=== PATIENT | male | born 1955 | race Caucasian/White ===

== ENCOUNTER → 2016-09-19 | Outpatient (CLI) | payer OTHER | END | disposition home or self-care (01) | LOC: LAB.O 09:41 | PROVIDERS: ATTEND Family Medicine | DX: I10 Essential (primary) hypertension (principal) ==

== ENCOUNTER 2016-11-15 05:55 | Day surgery (SDC) | payer OTHER ==
[~2016-11-15 05:55] MED LIST: LACTATED RINGERS 1,000 ML ONE
[2016-11-15 07:23] VITALS: O2SAT 95
[2016-11-15 08:50] VITALS: BP 107/71; TEMP 98.2
--- NOTE | 2016-11-15 09:03 | OP ---
DATE OF PROCEDURE: 11/15/16 PREOPERATIVE DIAGNOSIS: 1. Average risk screening colonoscopy. POSTOPERATIVE DIAGNOSIS: 1. Diverticulosis. 2. Transverse colon polyp. 3. Internal hemorrhoids. PROCEDURE: 1. Colonoscopy with polypectomy. SURGEON: Ras Diaz MD. SEDATION: Monitored anesthesia care. ESTIMATED BLOOD LOSS: Less than 5 mL. PROCEDURE: Informed consent was obtained prior to sedation. The preprocedure cardiopulmonary assessment was satisfactory. The patient was brought to the Endoscopy Suite and placed in the left lateral decubitus position. She was then sedated by the anesthesia team. Digital rectal exam revealed perianal skin tags and internal hemorrhoids. The tip of the Olympus colonoscope was inserted into the rectum and advanced under direct visualization to the cecum as identified by the appendiceal orifice and ileocecal valve. Preparation of the colon was good. Upon reaching the cecum, the endoscope was slowly withdrawn from the patient with careful attention paid to the entire colonic mucosa for the identification of any small polyps or flat vascular lesions. There was evidence of diverticulosis throughout the entire colon. In the transverse colon, there was a small, 3 mm, flat polyp. This was resected and retrieved completely with cold forceps. The endoscopic was withdrawn into the rectum where a retroflexed view of the anal verge revealed internal hemorrhoids. The endoscope was then withdrawn from the patient and the procedure terminated. RECOMMENDATION: 1. Discharge the patient home with escort. 2. Followup pathology results. 3. Repeat colonoscopy in 5 to 10 years based on pathology results. Recommendation of 5 years will be given if polyp tissue reveals adenoma. 4. Return to my office as needed. #[id number] [facility]
[2016-11-15] MEDS ORDERED: LIDOCAINE 1% 10 ML VIAL INJ ONE (12:00)
[2016-11-15] MEDS ORDERED: PROPOFOL 200 MG/20 ML VIAL IV ONE (12:00)
== END 2016-11-15 09:57 | disposition home or self-care (01) ==
LOC: AMB 05:55
PROVIDERS: ATTEND Internal Medicine Gastroenterology
DX: Z12.11 Encounter for screening for malignant neoplasm of colon (principal); D12.3 Benign neoplasm of transverse colon; K57.30 Diverticulosis of large intestine without perforation or abscess without bleeding; K64.8 Other hemorrhoids; E11.9 Type 2 diabetes mellitus without complications; I10 Essential (primary) hypertension; E66.9 Obesity, unspecified; Z68.38 Body mass index [BMI] 38.0-38.9, adult; Z88.0 Allergy status to penicillin; Z87.891 Personal history of nicotine dependence; Z79.899 Other long term (current) drug therapy
CPT/HCPCS: 00810; 36416; 45380; 82948; J3490; J7120

== ENCOUNTER 2017-05-16 12:32 | Inpatient (IN) | payer OTHER ==
--- NOTE | 2017-05-16 12:41 | HP ---
SUPERVISING PHYSICIAN: Kosta Harvey MD HISTORY OF PRESENT ILLNESS: This is a 61-year-old male patient who started having some abdominal pain yesterday morning. He stayed at home from work and it worsened to the point that by the afternoon, he went to see Dr. Garcia in his office and Dr. Garcia sent him over the [facility] for admission. His CT scan per radiologic interpretation over at [facility] showed a distended gallbladder and possible gallbladder neck stone and recommended an ultrasound and also showed a 2 cm right adrenal adenoma and left colonic and sigmoid diverticulosis without evidence of acute diverticulitis and bilateral inguinal hernias, larger on the left than the right, both containing fat. Initially, his WBCs were 17,400, sodium 132, potassium 3.4 with blood sugar 156 , BUN 24, creatinine 0.92. His CK-MB was slightly elevated at 7.9 with a normal troponin of 0.05. His liver enzymes were within normal limits. His lipase was [address] Garcia called Dr. Delaney and Dr. Delaney agreed for the patient to be transferred here. This morning, I got a call from [facility] for him to be transferred to [facility] and Dr. Delaney to be consulted for possible cholecystectomy. His morning labs showed white count 14,700, hemoglobin 15.7, hematocrit 46. Sodium 134, potassium 3.8, chloride 98, CO2 was 28, BUN 12, creatinine 0.69, blood glucose 175, calcium 8.8. Liver enzymes were within normal limits. PAST MEDICAL HISTORY: 1. Snake bite to his left hand approximately 30 years ago. 2. Diabetes mellitus. 3. Hypertension. PAST SURGICAL HISTORY: 1. Tonsillectomy and adenoidectomy. 2. Surgical reimplantation of the fingers on his left hand. 3. Multiple eye surgeries as a very small child. CURRENT MEDICATIONS: 1. Metoprolol. 2. Metformin. 3. Hydrochlorothiazide. ALLERGIES: PENICILLIN AND GAMMA GLOBULIN. FAMILY HISTORY: Positive for diabetes, multiple malignancies and heart disease. SOCIAL HISTORY: He is . 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 He denies any ETOH, tobacco or illicit drug use, but he did quit smoking approximately 10 years ago. He has more than a 30 pack year history. REVIEW OF SYSTEMS: GENERAL: Denies fever, fatigue or weight loss. HEENT: Denies sinus symptoms, ear pain, vision changes or sore throat. RESPIRATORY: Denies coughing, wheezing or shortness of breath. CARDIAC: Denies chest pain, palpitations or tachycardia. GASTROINTESTINAL: Abdominal pain as per History of Present Illness. GENITOURINARY: Denies hematuria, dysuria or polyuria. NEUROLOGIC: Denies headache, dizziness or seizures. PHYSICAL EXAMINATION: VITAL SIGNS: Temperature 98, pulse rate 106, blood pressure 138/87, respiratory rate 17, O2 sat is 96% on room air. GENERAL: This is a 61 year-old male patient who is lying in his hospital bed. He is in no acute distress. HEENT: Normocephalic, atraumatic. Pupils are equal and reactive. Oropharynx is clear. Oral mucous membranes are moist. NECK: Supple without mass. RESPIRATORY: Clear to auscultation bilaterally. CHEST: There is equal rise and fall of the chest with inspiration and expiration. CARDIOVASCULAR: Regular rate and rhythm. ABDOMEN: Soft, nondistended. There is tenderness in the right lower quadrant with some guarding. There is no CVA tenderness. Bowel sounds are hypoactive. EXTREMITIES: No cyanosis, clubbing or edema. LABORATORY: Labs and films are as per the History of Present Illness plus his chest x-ray per radiology interpretation shows no evidence of acute cardiopulmonary or abdominal disease. Hemoglobin A1c is 6.7. We are awaiting the abdominal sonogram results. All other labs and films have been reviewed via the EMR. ASSESSMENT: 1. Possible cholelithiasis and early cholecystitis. 2. Diabetes. 3. Hypertension. PLAN: We will admit the patient to the hospital. I have consulted Dr. Delaney and he has seen the patient. I have ordered a gallbladder ultrasound as well as sliding scale insulin with AccuChecks every 6 hours. Will repeat his lab in the AM, including coags. I have ordered an EKG as well as Protonix for ulcer prophylaxis. He is NPO. I have also started him on some IV fluids and one dose of IV Levaquin. We will hold his home medications with the exception of his Metoprolol. After the results of the gallbladder sonogram, Dr. Delaney will discuss the possibility of surgery tomorrow. We will continue to monitor the patient closely and follow as needed. Dr. Harvey is the collaborating physician available for consultation. #[id number] [facility]
[2017-05-16] MEDS ORDERED: KCL 20MEQ/D5 1/2NS 1,000 ML IVS PRN (12:51)
[2017-05-16] MEDS ORDERED: SODIUM CHLORIDE 0.9% (FLUSH) 10 ML SYG IV PRN (13:39)
--- NOTE | 2017-05-16 13:39 | CONS ---
DATE OF CONSULTATION: 05/16/17 HISTORY OF PRESENT ILLNESS: The patient is a 61-year-old male who was admitted to observation yesterday at [facility] in [place] by Dr. Garcia after he woke up with nausea, vomiting and severe upper abdominal pain with radiation to the back. He denies previous episode of like illness. He denies real fatty food intolerance. He has no history of hepatitis; or jaundice. He still is tender with motion, but his nausea has resolved. He denies fever or chills. He denies previous episode of like illness. PAST MEDICAL HISTORY: 1. Snake bite to his left hand probably close to 30 years ago. 2. Diabetes mellitus. 3. Hypertension. PAST SURGICAL HISTORY: 1. Tonsillectomy and adenoidectomy. 2. Surgical reimplantation of the fingers on his left hand. CURRENT MEDICATIONS: 1. Metoprolol. 2. Metformin. ALLERGIES: PENICILLIN, GAMMAGLOBULIN. FAMILY HISTORY: Positive for diabetes, multiple malignancies, heart disease. 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 He currently does not smoke or drink, but has greater than a 30 pack year history of tobacco abuse. He stopped approximately 10 years ago. REVIEW OF SYSTEMS: There has been no weight loss, shortness of breath, chest pain, problems with cough, changes in bowel habits or black stools. PHYSICAL EXAMINATION: GENERAL: The patient is awake, alert, cooperative, in mild to moderate distress. VITAL SIGNS: The patient is currently afebrile. His last blood pressure was noted to be 180/105, but there has not been a blood pressure taken here. HEENT: Sclerae nonicteric. Mucous membranes moist. NECK: Without adenopathy. CHEST: Equal breath sounds bilaterally. HEART: Heart sounds are quite distant. ABDOMEN: Minimal bowel sounds. There is tenderness in the right lower quadrant with guarding. He is without CVA tenderness. GENITALIA: There is a reducible inguinal hernia on the left. Testes not examined. RECTAL: Deferred. EXTREMITIES: Without cyanosis, clubbing or edema. There is deformity of the left mid finger at the PIP joint. LABORATORY: From this morning at [place], laboratory revealed white blood cell count 14.7 which was down from 17 the day before. Hemoglobin 15, down from 16. Platelet count 272,000, 79% neutrophils. He had 85% neutrophils the day before. His liver functions are all within normal limits today. Potassium 3.8 , chloride 98, sodium 134, blood sugar 175, creatinine 0.69. CT scan from [place] was reviewed with Dr. Arias, our radiologist. There was a question of stone in the neck of the gallbladder. The gallbladder was distended, but there was no thickening of the parmar and no pericholecystic fluid. Otherwise, there is a large amount of stool. Both small umbical and inguinal hernia. ASSESSMENT: 1. Diabetes. 2. Hypertension. 3. Biliary colic. 4. Possible cholelithiasis and early cholecystitis. PLAN: Continue the Levaquin or Cipro. Obtain a sonogram. Keep him NPO. We will discuss surgical intervention of the gallbladder tomorrow after the results of the ultrasound are known. #[id number] [facility]
[2017-05-16] MEDS ORDERED: LEVALBUTEROL NEBS 1.25 MG/3 ML VIAL NEB PRN (13:41)
[2017-05-16] MEDS ORDERED: ONDANSETRON INJ 4 MG/2 ML VIAL IV PRN (13:41)
[2017-05-16] MEDS ORDERED: GLUCAGON INJ 1 MG VIAL SUBCU PRN (13:46)
[2017-05-16] MEDS ORDERED: DEXTROSE 50% 25 GM/50 ML SYG IV PRN (13:46)
[2017-05-16] MEDS ORDERED: IV SET AND CAP CHANGE INJ INJ SCH (14:00)
[2017-05-16] MEDS: PANTOPRAZOLE SODIUM IV 40 MG VIAL IV SCH (15:00)
[2017-05-16] MEDS ORDERED: levoFLOXacin 750MG IV 750 MG in PREMIX BAG 1 BAG IVPB ONE (16:00)
--- NOTE | 2017-05-16 16:04 | US ---
EXAM DESCRIPTION: Gall Bladder CLINICAL HISTORY: abd pain COMPARISON: None available. FINDINGS: This report is based on the receipt of 54 ultrasound images. Aorta: Not visualized IVC: Not visualized Ascites: None. Pancreas: Largely obscured by overlying bowel gas, but visualized portions are unremarkable. Liver: The liver appears diffusely hyperechoic suggesting the possibility of fatty filtration. No focal liver lesion or intrahepatic biliary duct dilation. Gallbladder/Common Duct: There is a 1.6 cm gallstone in the gallbladder neck with gallbladder wall thickening measuring 5 mm diameter. The common duct is not dilated, measuring 5 mm diameter. Right Kidney: No stones, hydronephrosis, atrophy or mass. IMPRESSION: Cholelithiasis with gallbladder wall thickening consistent with cholecystitis. No biliary duct dilation. Probable diffuse fatty infiltration of the liver. Electronically signed by: Live Rodriguez MD 05/16/2017 4:03 PM CDT Workstation: [id number]
[2017-05-16] MEDS ORDERED: KCL 20MEQ/D5NS 1,000 ML IVS ONE (16:09)
[2017-05-16] MEDS ORDERED: ENOXAPARIN SODIUM 40 MG/0.4 ML SYG SUBCU ONE (16:27)
[2017-05-16] MEDS: METOPROLOL TARTRATE 50 MG TAB PO SCH (17:02)
[2017-05-16] MEDS: KCL 20MEQ/D5NS 1,000 ML IVS PRN (17:31)
[2017-05-16] MEDS: INSULIN LISPRO 100 UNITS/ML PEN SUBCU SCH (17:52)
[2017-05-16] MEDS: HYDROmorphone HCL INJ 2 MG/ML VIAL IV PRN (21:05)
[2017-05-17] MEDS: INSULIN LISPRO 100 UNITS/ML PEN SUBCU SCH ×6 (01:31→21:38)
[2017-05-17] MEDS: KCL 20MEQ/D5NS 1,000 ML IVS PRN ×4 (01:32→15:16)
[2017-05-17] MEDS: PANTOPRAZOLE SODIUM IV 40 MG VIAL IV SCH (06:01)
[2017-05-17] MEDS ORDERED: PROPOFOL 200 MG/20 ML VIAL IV ONE (07:00)
[2017-05-17] MEDS ORDERED: ATROPINE SULFATE 0.4 MG/ML 1ML VIAL ONE (07:00)
[2017-05-17] MEDS ORDERED: NEOSTIGMINE METHYLSULFATE 1 MG/ML ML IV ONE (07:00)
[2017-05-17] MEDS: METOPROLOL TARTRATE 50 MG TAB PO SCH ×2 (07:33→16:52)
[2017-05-17] MEDS ORDERED: HEPARIN SODIUM (PORCINE) 10,000 UNITS/ML VIAL ONE (10:43)
[2017-05-17] MEDS ORDERED: BUPIVACAINE 0.25% W/EPI 50 ML VIAL INJ ONE (10:43)
[2017-05-17] MEDS ORDERED: fentaNYL CITRATE INJ 50 MCG/ML AMP ONE (11:15)
[2017-05-17] MEDS ORDERED: ROCURONIUM BROMIDE 10 MG/ML VIAL ONE ×2 (11:15→13:05)
[2017-05-17] MEDS ORDERED: HYDROcodone 5MG/APAP 325MG 1 EA TAB PO PRN (13:48)
[2017-05-17] MEDS ORDERED: ONDANSETRON INJ 4 MG/2 ML VIAL IV PRN (13:48)
[2017-05-17] MEDS: MORPHINE SULFATE INJ 10 MG/ML VIAL ONE ×2 (14:10→14:20)
[2017-05-17] MEDS ORDERED: METOCLOPRAMIDE HCL INJ 10 MG/2 ML VIAL ONE (14:27)
--- NOTE | 2017-05-17 14:39 | OP ---
DATE OF PROCEDURE: 05/17/17 PREOPERATIVE DIAGNOSIS: 1. Cholelithiasis. 2. Possible acute cholecystitis. 3. Diabetes mellitus. 4. Possible fatty infiltration of the liver. POSTOPERATIVE DIAGNOSIS: 1. Cholelithiasis. 2. Acute cholecystitis. 3. Diabetes mellitus. PROCEDURE: 1. Laparoscopic cholecystectomy with intraoperative cholangiography. SURGEON: Wilbert Delaney MD. TRASHMAN: None. ANESTHESIA: Local infiltration of 0.25% Marcaine with epinephrine and general endotracheal anesthesia. INDICATION: The patient is a 61-year-old male who developed severe abdominal pain the day before yesterday. He was admitted [facility] in [place] where a CT scan showed a normal gallbladder wall thickening, but appeared to have a stone in the neck of the gallbladder. He was transferred here and ultrasound revealed thickening of the gallbladder wall, possible fatty infiltration of the liver and a gallstone. The patient was brought to the Surgical Suite today for laparoscopic cholecystectomy with cholangiograms and possible wedge biopsy of the liver. FINDINGS: The patient's liver had minuscule, if any, fatty infiltration of the liver, so no biopsy was performed. Intraoperative cholangiography revealed a very long cystic duct that entered into the distal common bile duct. The upper trifurcation was identified without problem. There were no obvious filling defects or stricture. There was free flow into the duodenum. No other pathology was identified other than the gallbladder wall was thickened and edematous. DESCRIPTION OF PROCEDURE: After adequate general endotracheal anesthesia was obtained, the patient was prepped and draped in the usual sterile manner. Surgical time-out was taken. Infiltration of the area approximately 2 to 3 cm above the umbilicus was infiltrated with local anesthesia. A vertical incision was made. Dissection was carried down through the skin and subcutaneous tissue to the midline fascia using blunt dissection. Traction sutures were placed on either side of the midline. A small incision was made in the midline fascia and the peritoneum was opened bluntly. Shahana trocar was introduced under direct vision and fixed in place with the 20 mL balloon. CO2 was then insufflated until a pressure of 12 mmHg was reached and the abdomen was tympanitic in all four quadrants. At this point, it was noted that the camera, the laparoscope itself seemed to have a crack, so we had to change out and go to a different system. When this was done and white balanced, it was introduced into the abdominal cavity and the previously noted findings were identified. The patient was then placed in deep Trendelenburg position, turned to the left side. The upper abdominal ports were placed under direct vision. We were unable to grab the gallbladder due to its being tense with thickened parmar, so a Storz needle was introduced and 60 mL of dark green bile was aspirated. The gallbladder was then grasped, retracted anteriorly and laterally. The neck of the gallbladder was retracted laterally. The triangle of Calot was then explored with the cystic duct and cystic artery identified and isolated. The cystic duct was hemoclipped once proximally. A small incision was made in the cystic duct. The cholangiogram catheter was introduced under direct vision into the cystic duct and clipped in place. Cholangiograms were then taken using fluoroscopy which revealed free flow into the duodenum with no filling defects and a long cystic duct and the normal trifurcation and biliary tree. At this point, the cystic duct distal to the catheter was dissected free, clipped three times, then the cystic duct catheter was removed. No bile leak was identified. The cystic artery was clipped twice and then divided using electrocautery. A second branch was identified by cautery and this was also clipped twice. The gallbladder was then dissected free from the gallbladder bed of the liver with some difficulty due to the edema and there was a significant amount of oozing from the gallbladder bed of the liver which was controlled generally with cautery turned up to 50 after the gallbladder was out. The gallbladder was removed using an EndoCatch bag in the usual manner through the supraumbilical port site. When this was done, the subhepatic space and subphrenic space were irrigated copiously with saline. The liver was inspected and decision was made not to proceed with liver biopsy. At this point, due to the small amount of oozing in the gallbladder bed of the liver, a 15 Macedonian round PARK drain was introduced through the lateral port site and introduced to the subhepatic space and sutured in place with 3-0 Nylon skin suture. The remaining ports were removed under direct vision. Hemostasis was noted to be adequate. The supraumbilical port site fascia was approximated with two [id number] sutures of 0 Vicryl in a vertical manner. When these were done, the subcutaneous tissue was irrigated with saline. Skin edges were approximated with 4-0 Vicryl subcuticular sutures, benzoin and Steri-Strips. The PARK drain was placed to closed suction grenade drainage. At this point, Steri-Strips were applied. Sterile dressings were applied. The patient was awakened and taken to the Recovery Room in stable condition. Estimated blood loss was 100 to 150 mL. All sponge, needle and instrument counts were correct. #[id number] [facility]
[2017-05-17] MEDS ORDERED: levoFLOXacin 750MG IV 750 MG in PREMIX BAG 1 BAG IVPB SCH (16:00)
[2017-05-17] MEDS: HYDROmorphone HCL INJ 2 MG/ML VIAL IV PRN ×2 (16:55→19:36)
[2017-05-17] MEDS: DEX 5% W/NACL 0.45% 1000ML 1,000 ML IVS PRN (19:20)
[2017-05-18] MEDS: DEX 5% W/NACL 0.45% 1000ML 1,000 ML IVS PRN (03:12)
[2017-05-18 06:05] VITALS: BP 120/75; TEMP 98.5
[2017-05-18] MEDS: PANTOPRAZOLE SODIUM IV 40 MG VIAL IV SCH (06:05)
[2017-05-18] MEDS: INSULIN LISPRO 100 UNITS/ML PEN SUBCU SCH ×2 (07:30→13:50)
[2017-05-18] MEDS: METOPROLOL TARTRATE 50 MG TAB PO SCH (08:22)
--- NOTE | 2017-05-18 13:20 | PN ---
SUPERVISING PHYSICIAN: Kosta Harvey MD DATE: 05/17/17 SUBJECTIVE: The patient was seen in postoperative state from recovery. He was in stable condition. He had fairly good control of his pain. He was having no nausea. He is afebrile. OBJECTIVE: VITAL SIGNS: Temperature 98. Pulse 97. Blood pressure 130/76. Respirations 18. Saturation 97% on nasal cannula at 2 liters. I&Os showed positive balance of 279 with 1579 in, 1300 out. Weight 116 kg. CHEST: Lungs clear to auscultation. HEART: Regular rate and rhythm. ABDOMEN: Obese, but soft with tenderness overlying the surgical site. PARK drain in place in the right upper quadrant with serosanguineous fluid. EXTREMITIES: No cyanosis, clubbing or edema. NEUROLOGIC: Alert and oriented times three. LABORATORY: Preoperative laboratory studies showed normal CBC with white count 9.0. Differential within normal limits. Coagulation studies showed just a slightly elevated PT of 12.6 with PT-T 32.3. Chemistries preoperatively showed normal electrolytes with potassium 3.6, BUN 12, creatinine 0.79. Blood sugars well controlled between 118 and 197. Hemoglobin initially was 6.7, calcium 8.5. RADIOLOGY: Gallbladder ultrasound on 05/16/17 per radiologic interpretation showed cholelithiasis with gallbladder wall thickening consistent with cholecystitis, but no biliary duct dilation. There was probable diffuse fatty infiltration of the liver. ASSESSMENT: 1. Acute cholecystitis. 2. Diabetes, type 2. 3. Questionable fatty infiltration of the liver. 4. Hypertension. PLAN: The patient will be followed postoperatively along with Dr. Delaney with anticipation of hopefully discharging tomorrow. Diet will be advanced tonight as tolerated. He will be encouraged to walk. Pain control is per Dr. Delaney's orders. We will anticipate discharge tomorrow. Until then, we will continue to monitor the patient closely and treat appropriately. [facility][id number] [facility]
[2017-05-18 14:07] VITALS: O2SAT 97
--- NOTE | 2017-05-19 12:39 | DS ---
SUPERVISING PHYSICIAN: Kosta Harvey M.D. DISCHARGE DIAGNOSIS: 1. Acute cholecystitis secondary to cholelithiasis. 2. Diabetes mellitus, type 2. 3. Hypertension. HISTORY OF PRESENT ILLNESS: Mr. Sheriff is a 61-year-old male patient who started having some abdominal pains the day before admission early in the morning. He stayed at home from work and the pain worsened to the point that by the afternoon, he went to see Dr. Garcia in his office and Dr. Garcia sent him over to the [facility] for admission. His CT scan per radiologic interpretation over at [facility] showed a distended gallbladder and possible gallbladder neck stone and recommended an ultrasound and also showed a 2 cm right adrenal adenoma and left colonic and sigmoid diverticulosis without evidence of acute diverticulitis and bilateral inguinal hernias, larger on the left than the right, both containing fat. Initially, his white count was 17,400 , sodium 132, potassium 3.4 with blood sugar 156, BUN 24, creatinine 0.92. Liver enzymes were within normal limits. His lipase was [address] 103. Dr. Garcia called Dr. Delaney and Dr. Delaney agreed at that point that the patient is to be transferred to [facility]. On the morning of admission, [facility] requested the patient be transferred to [facility] and Dr. Delaney be consulted for possible cholecystectomy. His morning labs showed white count 14,700. Liver enzymes were still within normal limits. He was transferred and admitted in stable condition with surgical consultation with Dr. Delaney. LABORATORY: White count on admission was 9.0, at discharge was 10.4. Hemoglobin at discharge was 14.0, hematocrit 42.5, platelet count 261,000. Differential showed to be initially within normal limits. Coagulation studies showed just a slight elevation of PT at 12.6 with PTT of 32.3. Chemistries at discharge showed normal electrolytes with potassium 3.9, BUN 10, creatinine 0.87. Blood sugars were well controlled between 122 and 197. Liver functions showed a slight elevation of AST at 70, ALT at 101. Postoperatively calcium 8.4. RADIOLOGY: He had a CT of the abdomen performed at [facility]. Please refer to that report for full details. On admission to the Medical/Surgical floor prior to surgery he had a gallbladder ultrasound completed and per radiology interpretation there was note of cholelithiasis with gallbladder wall thickening consistent with cholecystitis but no biliary duct dilation. There was note of probable diffuse fatty infiltration of the liver. PROCEDURES: Laparoscopic cholecystectomy with intraoperative cholangiography for cholelithiasis and acute cholecystitis performed by Dr. Delaney. Please refer to his report for full details. HOSPITAL COURSE: Mr. Sheriff was admitted on 05/16/17 for acute cholecystitis. After workup and consultation with Dr. Delaney, the patient had a laparoscopic cholecystectomy performed on the morning of 05/17/17. He was seen in the immediate postoperative state. He was stable and discharged from recovery. He tolerated the surgery without any complications. He did have a J-P drain in place at time of admission back to the floor. On the morning of discharge, the patient was actually ambulating well, tolerating his diet and passing gas, having no further complaints. He had good blood pressure control. Blood sugars were well controlled and Dr. Delaney requested the patient be discharged to have close clinical followup in the next week. PLAN: Mr. Sheriff was discharged on 05/18/17 with instructions to followup with Dr. Delaney as scheduled. He was to resume his home medications as instructed and take new prescriptions as directed. He was started on antibiotics to include Levaquin for 4 days and to take every day at 1700. He was encouraged to increase fluids and was told to return to the hospital should he have any concerning symptoms. New prescriptions at discharge included: 1. [place] 5/325 one to two tablets every 4 hours as needed, #[address] Delaney. 2. Levaquin 500 mg daily at 1700, #4. Diet at discharge was low fat, low cholesterol diet with diet suggestions provided. Activity is walking as tolerated. No lifting. No exercising. May shower but no tub bath. Condition at discharge was stable and improved. [facility][id number] [facility]
== END 2017-05-18 13:40 | disposition home or self-care (01) | DRG 419 ==
LOC: MS 12:32
PROVIDERS: ADMIT Nurse Practitioner Acute Care; ATTEND Nurse Practitioner Family
PROC: 0FT44ZZ Resection of Gallbladder, Percutaneous Endoscopic Approach (ICD-10-PCS; principal; 2017-05-16)
DX: K80.00 Calculus of gallbladder with acute cholecystitis without obstruction (principal); K76.0 Fatty (change of) liver, not elsewhere classified; E11.9 Type 2 diabetes mellitus without complications; D35.01 Benign neoplasm of right adrenal gland; I10 Essential (primary) hypertension; K40.20 Bilateral inguinal hernia, without obstruction or gangrene, not specified as recurrent; Z87.891 Personal history of nicotine dependence; Z79.84 Long term (current) use of oral hypoglycemic drugs; Z79.899 Other long term (current) drug therapy; Z88.0 Allergy status to penicillin; Z91.048 Other nonmedicinal substance allergy status

== ENCOUNTER → 2017-09-28 | Outpatient (CLI) | payer OTHER | LOC: LAB.O 09:44 | PROVIDERS: ATTEND Family Medicine | DX: E11.9 Type 2 diabetes mellitus without complications (principal) ==

== ENCOUNTER 2017-10-01 12:59 | Inpatient (IN) | payer OTHER ==
--- NOTE | 2017-10-01 13:02 | HP ---
HISTORY OF PRESENT ILLNESS: This 61-year-old, white male was admitted to the hospital as a direct admit from Dr. Garcia' office from [place], [place]. He apparently has been getting sicker for the last 2 weeks. He has had decreased appetite. He has not been eating or drinking well at all and feels he is somewhat dehydrated. 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 He has especially noted some darkness in his urine with associated burning upon urination, hesitancy, some slight blockage, increased nocturia and urgency. He has had some lower abdominal discomfort associated with this. For the last 5 days, he has had worsening abdominal pain with associated chills and low grade fever of approximately 100 degrees. Last Sunday , which was 3 days ago, he was at work and became quite sweaty and lightheaded and was asking his colleagues to call his when he suddenly found himself sitting up on a chair having been helped there by his colleagues having lost consciousness temporarily. He had not fallen or injured his head. In Dr. Garcia' office today, the report states he had a white count of over 21,000 with associated anemia, blood pressure 127/83. He has had increasing weight loss, losing approximately 27 pounds in the last 6 months. He had his gallbladder removed by Dr. Delaney in May of 2017. At that time, he had a CT scan performed which did reveal adenoma of the right adrenal gland as well as the presence of diverticulosis without diverticulitis noted at that time. The patient is admitted to the hospital because of significant abnormalities on lab , his worsening condition, the presence of extreme darkness to his urine with associated abdominal pain and dysuria suggesting an underlying urinary tract infection with possible sepsis. Significant clinical dehydration also present with lab pending. PAST MEDICAL HISTORY: 1. Snake bite to the left hand about 30 years ago. 2. Diabetes mellitus on metformin twice daily. 3. Hypertension. PAST SURGICAL HISTORY: 1. Tonsillectomy as a child. 2. Surgical reimplantation of four fingers, left hand. 3. Snake bite to left hand. 4. 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 CURRENT MEDICATIONS: Please refer to nursing notes for a list of up-to-date, verified home medications. ALLERGIES: PENICILLIN, GAMMAGLOBULIN. FAMILY HISTORY: Positive for diabetes, cancer, heart disease. 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 REVIEW OF SYSTEMS: GENERAL: Significant weight loss is noted of about 27 pounds in the last 6 months, especially noted to increase the weight loss after the gallbladder surgery in May of last year. Some low grade fever and chills also present. HEENT: No specific complaints and problems of vision and hearing at this time. LUNGS: No significant shortness of breath or cough or hemoptysis. CARDIOVASCULAR: No chest pains or heavy crushing discomforts or rhythm changes. GASTROINTESTINAL: Decreased appetite. No blood in the stools. No nausea, vomiting or diarrhea. GENITOURINARY: Increased frequency with burning upon urination, urgency and hesitancy. History of enlarged prostate. EXTREMITIES: Unremarkable. NEUROLOGIC: No focal neurological deficits. The patient is quite weak. History of a syncopal episode with short period of loss of consciousness about 3 days ago while at work. PHYSICAL EXAMINATION: VITAL SIGNS: Afebrile. Pulse 106. Blood pressure 149/93. Pulse oximetry 95% on room air. Respirations 16. Weight 106.7 kg on bed scale. GENERAL: The patient is awake and alert. HEENT: Dryness of the buccal mucosa is readily evident. Encouraged to drink more fluids. NECK: Supple with no adenopathy or carotid bruits. LUNGS: Generally clear to auscultation with fairly good respiratory excursions. CARDIOVASCULAR: Heart tones are fairly regular without any significant gallops. No chest wall tenderness. ABDOMEN: Slightly diminished bowel tones. No organomegaly, masses or significant tenderness except some mild tenderness in the lower suprapubic region. EXTREMITIES: Fairly well-formed with no significant loss of muscle tone. NEUROLOGIC: No focal neurological deficits are noted. The patient is otherwise awake, alert, oriented and communicative. LABORATORY: Pending. Recent lab studies reported from Dr. Garcia' office is extremely dark urine looking almost like syrup according to the doctor. White count over 21,000. The was present to assist in transporting here, especially with his recent history of syncopal episode. Other lab studies are pending with blood cultures to be obtained as well. ASSESSMENT: 1. Evidence of probable urinary tract infection, rule out early sepsis, requiring fluids and antibiotic. 2. Recent history of syncope, probably postural drainage, await tilt vital signs, repeated on a daily basis after fluid challenge to see if it will improve. 3. Leukocytosis with white count over 21,000. 4. History of recent weight loss with the patient not eating much, contributing to the weight loss. 5. History of benign prostatic hypertrophy with history of nocturia, worsening with recent symptoms. 6. Possible underlying prostatitis. 7. Bilateral inguinal hernias, being followed by Dr. Delaney in the clinic. 8. Diabetes mellitus, type 2, on oral therapy. 9. Moderate dehydration, requiring fluid supplementation to assist with recovery. PLAN: The patient is given a bolus of fluids and then started on normal saline with potassium supplementation. Encouraged to drink adequate fluids. After urine and blood cultures are obtained, we will start meropenem 1 gram q.8h. Check tilt vitals. Close followup and review with Dr. Garcia when completed. Special attention to avoid falls. [facility][id number] [facility]
[2017-10-01] MEDS ORDERED: SODIUM CHLORIDE 0.9% (FLUSH) 10 ML SYG IV PRN (13:27)
[2017-10-01] MEDS ORDERED: ACETAMINOPHEN 325 MG TAB PO PRN (13:30)
[2017-10-01] MEDS ORDERED: IV SET AND CAP CHANGE INJ INJ SCH (13:30)
[2017-10-01] MEDS ORDERED: MAGNESIUM HYDROXIDE 30 ML UD PO PRN (13:30)
[2017-10-01] MEDS ORDERED: SODIUM CHLORIDE 0.9% 1000ML 1,000 ML IVS PRN (13:30)
[2017-10-01] MEDS ORDERED: SODIUM CHLORIDE 0.9% 500ML 500 ML IVS ONE (13:34)
[2017-10-01] MEDS: LEVALBUTEROL NEBS 0.63 MG/3 ML VIAL INH SCH ×2 (14:07→20:27)
[2017-10-01] MEDS: MULTIPLE VITAMIN 1 EA TAB PO SCH (14:18)
[2017-10-01] MEDS: KCL 20 MEQ/NS 1,000 ML IVS PRN (14:33)
[2017-10-01] MEDS ORDERED: MEROPENEM 1 GM VIAL IVPB ONE ×3 (14:46→19:32)
[2017-10-01] MEDS ORDERED: SODIUM CHL 0.9% 50ML MIN-BAG+ 50 ML IVPB ONE ×3 (14:46→19:31)
[2017-10-01] MEDS: MEROPENEM 1 GM in SODIUM CHL 0.9% 50ML MIN-BAG+ 50 ML IVPB SCH ×2 (14:47→21:35)
--- NOTE | 2017-10-01 15:47 | RAD ---
EXAM DESCRIPTION: Chest,2 Views CLINICAL HISTORY: fever, urosepsis COMPARISON: None FINDINGS: Two-view chest x-ray shows cardiomediastinal silhouette and pulmonary vasculature to be within normal limits. Tortuosity the thoracic aorta is seen. The lungs are normally aerated and clear. Costophrenic angles are sharp. Moderate disc degenerative changes of the spine are seen. IMPRESSION: No radiographic evidence of acute cardiopulmonary disease. Electronically signed by: Edvin Espinal MD 10/01/2017 3:46 PM [facility]
[2017-10-01] MEDS: metFORMIN HCL 500 MG TAB PO SCH (17:11)
[2017-10-01] MEDS: METOPROLOL TARTRATE 50 MG TAB PO SCH (17:12)
[2017-10-01] MEDS ORDERED: OMEPRAZOLE CAP 20 MG CAP ONE (19:32)
[2017-10-02] MEDS: KCL 20 MEQ/NS 1,000 ML IVS PRN ×2 (01:51→12:14)
[2017-10-02] MEDS: OMEPRAZOLE CAP 20 MG CAP PO SCH (06:04)
[2017-10-02] MEDS: MEROPENEM 1 GM in SODIUM CHL 0.9% 50ML MIN-BAG+ 50 ML IVPB SCH ×3 (06:04→22:08)
[2017-10-02] MEDS: HYDROcodone 5MG/APAP 325MG 1 EA TAB PO PRN ×2 (07:42→16:48)
[2017-10-02] MEDS: METOPROLOL TARTRATE 50 MG TAB PO SCH ×2 (07:43→16:43)
[2017-10-02] MEDS: metFORMIN HCL 500 MG TAB PO SCH ×2 (07:43→16:43)
[2017-10-02] MEDS: MULTIPLE VITAMIN 1 EA TAB PO SCH (08:30)
[2017-10-02] MEDS: LEVALBUTEROL NEBS 0.63 MG/3 ML VIAL INH SCH ×3 (08:50→20:34)
[2017-10-02] MEDS ORDERED: POTASSIUM CHLORIDE 20 MEQ TAB PO ONE (09:38)
[2017-10-02] MEDS ORDERED: MEROPENEM 1 GM VIAL IVPB ONE ×2 (12:37→19:52)
[2017-10-02] MEDS ORDERED: SODIUM CHL 0.9% 50ML MIN-BAG+ 50 ML IVPB ONE ×2 (12:37→19:52)
--- NOTE | 2017-10-02 15:58 | PN ---
DATE: 10/02/17 SUPERVISING PHYSICIAN: Germain Denney MD SUBJECTIVE: The patient is lying in bed, has complaints of some right flank pain but otherwise has no complaints of shortness of breath, chest pain, nausea , vomiting, diarrhea. OBJECTIVE: VITAL SIGNS: Temperature 98.1, pulse rate 93, blood pressure 133/ 77, respiratory rate 17, 02 saturation 96% on room air. CHEST: Essentially clear to auscultation bilaterally. CARDIAC: Regular rate and rhythm. GI: Abdomen soft, nondistended. He is slightly tender to the right upper quadrant and right flank area. There is no rebound tenderness. EXTREMITIES: No cyanosis, clubbing, or edema. NEURO: He is alert and oriented x 3. LABORATORY: WBCs have slightly improved to 16,700 with hemoglobin of 11.6 and hematocrit 34.4. Platelet count 511,000. Yftsal856, potassium 3.4, chloride 100 , carbon dioxide 28. BUN 9, creatinine 0.55. Glucose 126. Total PSA is 4.23. His preliminary blood cultures show no growth after 24 hours and his preliminary urine culture shows no growth after 24 hours. All other labs and films have been reviewed via the EMR. ASSESSMENT: 1. Urinary tract infection versus prostatitis, rule out early sepsis. He is presently on antibiotics and has had fluids. His blood cultures and urine cultures are . negative thus far with an elevated PSA. 2. Recent history of syncope, may be due to dehydration and sepsis. 3. Leukocytosis that is improving. 4. History of recent weight loss with the patient not eating much, contributing to his weight loss. 5. History of benign prostatic hypertrophy with history of nocturia with symptoms that have worsened recently. 6. Bilateral inguinal hernias, being followed by Dr. Delaney in the clinic. 7. Diabetes mellitus, type 2. 8. Dehydration most likely due to early sepsis as well as #1. . PLAN: We will continue present supportive care. I have discontinued his IV fluids for now due to his good intake of oral fluids. He has been walking in the hallways and feels much better, although he is still quite weak. Will consider completing a regimen of antibiotics to cover for prostatitis until he can see his primary care physician, Dr. Rebolledo, as well as being referred to a urologist. Will order labs for in the morning and we will continue to monitor the patient closely and follow as needed. Dr. Denney is the collaborating physician available for consultation. #[id number] [facility]
[2017-10-02] MEDS: SODIUM CHLORIDE 0.9% (FLUSH) 10 ML SYG IV SCH (21:15)
[2017-10-03] MEDS ORDERED: SODIUM CHL 0.9% 50ML MIN-BAG+ 50 ML IVPB ONE ×2 (05:23→12:07)
[2017-10-03] MEDS ORDERED: MEROPENEM 1 GM VIAL IVPB ONE ×2 (05:23→12:07)
[2017-10-03] MEDS: MEROPENEM 1 GM in SODIUM CHL 0.9% 50ML MIN-BAG+ 50 ML IVPB SCH ×2 (06:09→13:35)
[2017-10-03] MEDS: OMEPRAZOLE CAP 20 MG CAP PO SCH (06:10)
[2017-10-03 06:20] VITALS: TEMP 98.3
[2017-10-03] MEDS: METOPROLOL TARTRATE 50 MG TAB PO SCH (07:35)
[2017-10-03] MEDS: SODIUM CHLORIDE 0.9% (FLUSH) 10 ML SYG IV SCH (07:35)
[2017-10-03] MEDS: metFORMIN HCL 500 MG TAB PO SCH (07:36)
[2017-10-03] MEDS: MULTIPLE VITAMIN 1 EA TAB PO SCH (08:02)
[2017-10-03] MEDS: LEVALBUTEROL NEBS 0.63 MG/3 ML VIAL INH SCH ×2 (08:16→14:00)
[2017-10-03 10:13] VITALS: BP 136/88; O2SAT 97
--- NOTE | 2017-10-03 13:54 | DS ---
SUPERVISING PHYSICIAN: Germain Denney MD DISCHARGE DIAGNOSIS: 1. Acute prostatitis, although it may be chronic. Received Merrem IV antibiotics as inpatient. PSA is 4.23. 2. Urinary tract infection versus prostatitis. Early sepsis was ruled out. He received IV antibiotics and IV fluid resuscitation. His blood cultures and urine cultures are negative thus far with an elevated PSA. 3. Leukocytosis, continues although has improved from admission. 4. History of recent weight loss, most likely due to not eating due to his illness. 5. History of benign prostatic hypertrophy with history of nocturia with symptoms that have worsened recently. 6. Bilateral inguinal hernias, being followed by Dr. Delaney in the clinic. 7. Diabetes mellitus, type 2. 8. Dehydration, most likely due to early sepsis as well as #1. HISTORY OF PRESENT ILLNESS: This is a 61-year-old male patient who is seen by Dr. Garcia. He was directly admitted to our hospital from Dr. Garcia' office in [place], [place]. He had been getting sicker for the previous 2 weeks with very poor appetite. He had not been eating or drinking well and was dehydrated. 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 His urine was reported to be dark with associated burning upon urination. There was some hesitancy, some slight blockage, increased nocturia and urgency. He also complained of lower abdominal discomfort. For 5 days prior to his admission, he had worsening abdominal pain with associated chills and low grade fever of approximately 100 degrees. At one point, he had diaphoresis and was lightheaded and had a syncopal episode. There was no associated fall. On the day of admission, Dr. Garcia' office reported he had a white count of over 21, 000 with associated anemia, and blood pressure 127/83. He has lost approximately 27 pounds in the last 6 months. He had his gallbladder removed by Dr. Delaney in May of 2017. At that time, he had a CT scan performed which did reveal adenoma of the right adrenal gland as well as the presence of diverticulosis without diverticulitis. The patient is admitted to the hospital because of significant abnormalities on lab, his worsening condition, the presence of UA with likely urinary tract infection. HOSPITAL COURSE: He was started on meropenem and given fluids. His white count came down to 16,700, but lab values at his recent office visit showed a frequency of recent elevated white blood cell counts. Hemoglobin 11.7, hematocrit 35.7. He does have a slightly elevated platelet count at 539. Electrolytes are basically within normal limits today. He did have a PSA of 4.23 and he has a family history of prostatic cancer. His blood cultures show no growth after 24 hours. Although his urinalysis was consistent with urinary tract infection, his urine culture showed no growth after 48 hours. Today, he is feeling much improved. Due to the elevated white count as well as the continued leukocytosis as well as his genitourinary symptoms, he will be discharged home today and will be given 28 days of ciprofloxacin for prostatitis. He is to resume his previous activities. I have requested that he be off of work until he sees Dr. Garcia on 10/10/17 at 3 PM. At that time, I have requested that he have a PSA drawn again and at some point, he will need to have a referral to a urologist. It also may be beneficial for him to see a instructor nurse due to the adenoma on the adrenal gland as well as his chronic leukocytosis. He is to return to Dr. Garcia' office or the hospital for any further problems or complications. DISCHARGE MEDICATIONS: 1. Metoprolol tartrate. 2. Hydrochlorothiazide. 3. Metformin. 4. Multivitamins. 5. Ibuprofen. 6. Align. 7. Ciprofloxacin b.i.d. times [address] Denney is the collaborating physician and available for consultation. #[id number] [facility]
== END 2017-10-03 14:45 | disposition home or self-care (01) | DRG 728 ==
LOC: MS 12:59
PROVIDERS: ADMIT Emergency Medicine; ATTEND Nurse Practitioner Acute Care
DX: N41.0 Acute prostatitis (principal); N39.0 Urinary tract infection, site not specified; E86.0 Dehydration; N41.1 Chronic prostatitis; I10 Essential (primary) hypertension; R63.0 Anorexia; R55 Syncope and collapse; R97.20 Elevated prostate specific antigen [PSA]; E11.9 Type 2 diabetes mellitus without complications; N40.0 Benign prostatic hyperplasia without lower urinary tract symptoms; K40.20 Bilateral inguinal hernia, without obstruction or gangrene, not specified as recurrent; Z88.0 Allergy status to penicillin; Z91.048 Other nonmedicinal substance allergy status; Z87.891 Personal history of nicotine dependence; Z90.49 Acquired absence of other specified parts of digestive tract; Z80.42 Family history of malignant neoplasm of prostate; Z68.33 Body mass index [BMI] 33.0-33.9, adult

== ENCOUNTER → 2017-10-10 | Outpatient (CLI) | payer OTHER | LOC: LAB.O 07:45 | PROVIDERS: ATTEND Family Medicine | DX: N39.0 Urinary tract infection, site not specified (principal) ==

== ENCOUNTER → 2017-10-18 | Outpatient (CLI) | payer OTHER ==
--- NOTE | 2017-10-18 10:45 | CT ---
EXAM DESCRIPTION: CT ABDOMEN AND PELVIS WITHOUT AND WITH CONTRAST CLINICAL HISTORY: DIVERTICULITIS COMPARISON: December 23, 2008 noncontrast imaging of the abdomen and pelvis TECHNIQUE: CT of the abdomen and pelvis are performed prior to and during IV bolus administration of 100 mL of Isovue 300. Oral contrast media is administered as well. This exam was performed according to our departmental dose-optimization program, which includes automated exposure control, adjustment of the mA and/or kV according to patient size and/or use of iterative reconstruction technique. FINDINGS: The lung bases are clear without infiltrate or effusion or free abdominal air. The liver is normal in size and shape and appearance on noncontrast and contrast enhanced examination without cyst or mass. Interval cholecystectomy is noted from prior study without ductal dilation. A small normal spleen is noted. Region of the pancreas is normal without cyst or mass. Slight fullness of the left adrenal gland is unchanged from 2007 and a partially calcified approximate 1.5 cm cyst or benign adenoma of the right adrenal gland is stable and unchanged from remote study. The enhancement pattern appears to represent a dual phase enhancement with a combination of venous enhancement and delayed excretion of contrast. Normal renal enhancement is present without obstruction or mass or cyst. The aorta and vena cava and retroperitoneum are unremarkable. Small and large bowel caliber is normal with evidence of a diverticulosis involving the left colon with no evidence of obstruction or abdominal or pelvic ascites. Within the pelvis considerable inflammatory mesenteric changes centrally and on the left with extensive diverticulosis of the left colon is present. Delayed imaging demonstrates more complete enhancement of the collecting systems and layering contrast in the dependent bladder. No Snyder catheter is noted but significant air in the anterior bladder is present and if the patient has not been recently instrumented possibility of a fistulous communication between the patent bladder and bowel likely the colon should be considered. Likely is present in the anterior dome of the bladder essentially in the midline. Modest mid and distal colonic bowel wall thickening consistent with diverticulosis is present and most prominent adjacent to the dome of the bladder in the mid sigmoid colon. There is a tiny bubble of air behind the mid sigmoid colon and above and to the left of the bladder that appears to be extraluminal consistent with a microperforation that is contained in the left lower pelvis. Large fat-containing left inguinal hernia without bowel is present. No extravasated contrast from the partially filled bladder is evident. The rectum and distal sigmoid are more normal in appearance. A drainable fluid collection is not apparent with thickening and surrounding the small amount of extraluminal air noted in the left lateral pelvis approximately 2 cm in size. IMPRESSION: 1. Extensive diverticulosis of the left colon with findings of acute diverticulitis of the mid sigmoid colon and fistulous communication from this region through the anterior dome of the bladder with an air and contrast distended bladder evident. 2. Small microperforation posterior and to the left of the bladder dome and the mid sigmoid colon with slight thickening in this region but no evidence of free air within the anterior pelvis or abdomen. 3. Moderately large fat-containing left inguinal hernia without bowel 4. Interval cholecystectomy since previous 2009 examination. 5. Stable small right adrenal cyst or adenoma with peripheral calcification unchanged from remote study 6. Findings discussed with Dr. Delaney by telephone at the time of interpretation. Electronically signed by: Kosta Miranda MD 10/18/2017 10:44 AM CDT
== END ==
LOC: CT 07:57
PROVIDERS: ATTEND Surgery
DX: K57.32 Diverticulitis of large intestine without perforation or abscess without bleeding (principal); K40.90 Unilateral inguinal hernia, without obstruction or gangrene, not specified as recurrent

== ENCOUNTER 2017-10-26 06:03 | Inpatient (IN) | payer OTHER ==
[2017-10-26] MEDS ORDERED: SCOPOLAMINE PATCH 1.5MG 1 EA TD ONE (06:53)
[2017-10-26] MEDS ORDERED: metroNIDAZOLE IV PREMIX 500MG 100 ML IVPB ONE ×3 (06:54→19:55)
[2017-10-26] MEDS ORDERED: LACTATED RINGERS 1,000 ML ONE (06:54)
[2017-10-26] MEDS ORDERED: levoFLOXacin 500MG IV 100 ML IVPB ONE (06:54)
[2017-10-26] MEDS ORDERED: fentaNYL CITRATE INJ 50 MCG/ML AMP ONE ×3 (08:26→16:04)
[2017-10-26] MEDS ORDERED: MIDAZOLAM INJ 2 MG/2 ML VIAL ONE (08:26)
[2017-10-26] MEDS ORDERED: ELECTROLYTE-A 1,000 ML IVS ONE ×3 (09:53→12:44)
[2017-10-26] MEDS ORDERED: KETAMINE HCL 100 MG/ML VIAL ONE (09:54)
--- NOTE | 2017-10-26 09:55 | HP ---
CHIEF COMPLAINT: Diverticulitis with a colovesical fistula. HISTORY OF PRESENT ILLNESS: The patient is a 61-year-old male who was admitted recently through the Emergency Room with suprapubic pain and pyuria. He was treated initially with Cipro. He was sent to me with a history of diverticulitis after he began passing gas per urethra. CT scan was obtained which revealed air in the bladder with the segment of diverticulitis overlying the dome of the bladder, also what looked like an intermesenteric cavity that had air, but no obvious air-fluid level consistent with an abscess. He is status post laparoscopic cholecystectomy late last year by me. He is currently afebrile and has had no fever or chills at home and states that the gas has decreased somewhat. PAST MEDICAL HISTORY: 1. History of snake bite. 2. Hypertension. 3. Diabetes mellitus, type 2. 4. Osteoarthritis. 5. Varicosities. PAST SURGICAL HISTORY: 1. Bilateral inguinal hernia repairs. 2. Tonsillectomy and adenoidectomy. 3. Repair of his hand. 4. Colonoscopy last year with polypectomy. 5. Several eye surgeries. 6. Laparoscopic cholecystectomy. CURRENT MEDICATIONS: 1. Cipro. 2. Flagyl. 3. Toprol. 4. Metformin. 5. MiraLAX. 6. Hydrochlorothiazide. ALLERGIES: PENICILLIN, GAMMAGLOBULIN. FAMILY HISTORY: Noncontributory. 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 He quit smoking in 2006 after approximately 30 pack year history. No history of alcohol abuse. REVIEW OF SYSTEMS: There has been no significant weight loss, no change in his bowel habits, no blood per rectum, no hematemesis and no melanotic stools. He currently does still complain of the air per urethra, usually first thing in the morning, but denies hematuria or dysuria. He denies shortness of breath or chest pain. PHYSICAL EXAMINATION: GENERAL: The patient is awake, alert, cooperative, in no acute distress. VITAL SIGNS: The patient is currently afebrile. HEENT: Sclerae nonicteric. Mucous membranes moist. NECK: Without adenopathy. BACK: Without CVA tenderness. CHEST: Equal breath sounds bilaterally. HEART: Regular rate and rhythm. ABDOMEN: Soft. There is mild suprapubic tenderness without mass. RECTAL: Deferred. EXTREMITIES: Without cyanosis, clubbing or edema. LABORATORY: Potassium 3.6, creatinine 0.83, BUN 25, glucose 148. Liver functions all within normal limits. Hemoglobin 14.7, white count 9.2, 57% neutrophils, platelet count 328,000. Urinalysis reveals specific gravity of 1.025 with no significant bacteria or white cells. Chest x-ray was unremarkable. EKG reveals normal sinus rhythm. ASSESSMENT: 1. Diverticulitis with colovesical fistula. PLAN: After an antibiotic and mechanical bowel prep, the patient is brought to the Surgical Suite this morning for colectomy with primary anastomosis and resection of colovesical fistula with repeat of the bladder. #[id number] [facility]
[2017-10-26] MEDS ORDERED: SODIUM CHLORIDE 0.9% 50 ML VIAL INJ ONE (10:00)
[2017-10-26] MEDS ORDERED: WATER FOR INJ 10 ML VIAL INJ ONE (10:00)
[2017-10-26] MEDS ORDERED: METOCLOPRAMIDE HCL INJ 10 MG/2 ML VIAL IV ONE (10:00)
[2017-10-26] MEDS ORDERED: raNITIdine HCL INJ 25 MG/ML VIAL IV ONE (10:00)
[2017-10-26] MEDS ORDERED: LIDOCAINE 1% 10 ML VIAL INJ ONE (10:00)
[2017-10-26] MEDS ORDERED: VECURONIUM BROMIDE 10 MG VIAL IV ONE (10:00)
[2017-10-26] MEDS ORDERED: PROPOFOL 200 MG/20 ML VIAL IV ONE (10:00)
[2017-10-26] MEDS ORDERED: DEXAMETHASONE INJ 10 MG/ML VIAL IV ONE (10:00)
[2017-10-26] MEDS ORDERED: SUGAMMADEX SODIUM 200 MG/2 ML VIAL IV ONE (11:42)
[2017-10-26] MEDS ORDERED: HYDROmorphone HCL INJ 2 MG/ML VIAL ONE (11:43)
--- NOTE | 2017-10-26 12:53 | RAD ---
EXAM DESCRIPTION: Chest,2 Views CLINICAL HISTORY: 61 years Male, PREOP COMPARISON: 01 October 2017 TECHNIQUE: PA/lateral FINDINGS: There is no cardiac or pulmonary abnormality. The lungs are clear. There is no effusion. IMPRESSION: 1. Normal two-view chest. Electronically signed by: Felipe Hines MD 10/26/2017 12:51 PM CDT
[2017-10-26] MEDS ORDERED: SODIUM CHLORIDE 0.9% 1000ML 1,000 ML ONE (13:17)
[2017-10-26] MEDS ORDERED: ACETAMINOPHEN IV 1000MG 100 ML ONE (14:30)
[2017-10-26] MEDS ORDERED: ONDANSETRON INJ 4 MG/2 ML VIAL IV PRN (16:32)
[2017-10-26] MEDS: LACTATED RINGERS 1,000 ML IVS PRN (16:50)
[2017-10-26] MEDS: PANTOPRAZOLE SODIUM IV 40 MG VIAL IV SCH (18:38)
[2017-10-26] MEDS ORDERED: DEXTROSE 50% 25 GM/50 ML SYG IV PRN (18:56)
[2017-10-26] MEDS ORDERED: GLUCAGON INJ 1 MG VIAL SUBCU PRN (18:56)
[2017-10-26] MEDS: INSULIN LISPRO 100 UNITS/ML PEN SUBCU SCH (20:46)
[2017-10-26] MEDS: metroNIDAZOLE IV PREMIX 500MG 500 MG in PREMIX BAG 1 BAG IVPB SCH (20:47)
--- NOTE | 2017-10-26 20:50 | CONS ---
DATE OF CONSULTATION: 10/26/17 HISTORY OF PRESENT ILLNESS: This 61 year-old white male is now immediately postoperative exploratory laparotomy for surgical intervention involving removal of a portion of diseased colon with associated diverticulitis and colovesical fistulous formation. The patient has completed an approximate 6 hours of surgery. There was a small nicking of the ureter which was repaired with primary anastomosis over a stent. Portions of the colon was removed as well as taken down and repair of the vesicular fistulous tract to begin the healing process. The patient tolerated the procedures quite well. He was recovered and then admitted to Med/Surg for continued rehabilitation and observation under direct supervision of Dr. Delaney, General Surgery. It is of note that he had his gallbladder out in May of last year and subsequently developed a urinary tract infection in September of this year. He was treated with Meropenem then discharged home, but it was shortly thereafter that he started passing bubbles of gas in his urine via the urethra. Because of this, the possibility of an underlying fistulous tract required surgical intervention and was documented by Dr. Delaney requiring surgical intervention. In May, he had a CT scan that showed diverticulosis but no evidence of diverticulitis. He subsequently had decreasing weight, low-grade fever, feeling worse over the last 2 weeks. PAST MEDICAL HISTORY: 1. Snake bite to the left hand about 30 years ago. 2. Injury to the left hand with a table saw. 3. Diabetes mellitus on Metformin twice a day. 4. Hypertension. PAST SURGICAL HISTORY: 1. Tonsillectomy as a child. 2. Surgical reimplantation of 4 fingers left hand from table saw accident. 3. Snake bite to the left hand. 4. 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 5. Surgery today which was an exploratory laparotomy with take down of a colovesicular fistulous tract and repair of ureter by Dr. Delaney. CURRENT MEDICATIONS: Please refer to nurses' notes for a list of an up to date verified home medication list provided by the nurses. ALLERGIES: PENICILLIN AND GAMMAGLOBULIN. FAMILY HISTORY: Positive for diabetes, cancer, heart disease and hypertension. 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 REVIEW OF SYSTEMS: His weight was down for a few weeks but now has gone up from 235 to 245 prior to surgery after the September treatment of the urinary tract infection. HEENT: No hearing or vision disturbances, but he has had multiple eye surgeries because of apparent strabismus as a child. LUNGS: No significant shortness of breath or cough. CARDIOVASCULAR: No chest pains or palpitations. GASTROINTESTINAL: Decreased appetite recently with rectal hemorrhoids in the past, bleeding occasionally. GENITOURINARY: Significant recurring urinary tract infections with passing of bubbles of gas via the urethra suggesting a fistulous tract repaired today in surgery. NEUROLOGIC: No focal neurological deficits otherwise evident. PHYSICAL EXAMINATION: VITAL SIGNS: Afebrile, pulse 105, blood pressure 136/88, pulse oximetry 94% on 3 liters. Weight is 112.2 kilos stated weight and not measured. GENERAL: The patient is awake and alert at this time postoperatively. He was resting earlier but now is fully awake. Minimal discomfort in the lower abdomen. HEENT: Unremarkable. NECK: Supple. CHEST: Lungs generally clear to auscultation. HEART: Tones are regular without any significant gallops. ABDOMEN: Somewhat tender to palpation postoperatively with an abdominal binder in place. Decreased, if any, bowel tones are noted. No organomegaly appreciated. Snyder catheter is in place and some hematuria is noticed postoperatively. EXTREMITIES: Well formed, fairly good muscle tone. NEUROLOGIC: No focal neurological deficits and at this time the patient is awake and alert, communicative and cooperative. LABORATORY STUDIES: White count is 9,200 with 56% neutrophils, hemoglobin 14.7. Chemistries show potassium 3.6, sodium 136, CO2 of 24, BUN 25, creatinine 0.83 with an elevated BUN/creatinine ratio of 30, glucose is 123 fasting and 201 postoperatively. Urine before surgery was clean. Urine culture showed no growth from yesterday. RADIOLOGY: Chest x-ray was performed before surgery and showed no acute cardiopulmonary abnormalities. ASSESSMENT: 1. Immediate postoperative day zero exploratory laparotomy, sigmoid colectomy, bladder repair, urethral stent placement and urethral repair. 2. Diabetes mellitus type 2 on oral therapy. 3. History of hypertension. PLAN: The patient has done quite well during the surgery procedure and is now requiring ongoing alf care and close observation. If hypertension becomes a significant problem and the patient remains NPO, then will consider a Clonidine 2.5 or 5 mg patch for the ensuing days until he is able to take his home medications. Observe closely. Sliding scale will be utilized to assist with diabetes management and control. Continue with NG suction and close observation of bowel activity. Continue on Metronidazole and Levaquin IV. Encourage deep breathing and active contraction and relaxation of lower extremities with ongoing prophylaxis for DVT prevention. Reevaluation in the morning. #[id number] [facility]
[2017-10-26] MEDS: MORPHINE SULFATE INJ 10 MG/ML VIAL IV PRN (22:29)
[2017-10-27] MEDS: INSULIN LISPRO 100 UNITS/ML PEN SUBCU SCH ×4 (01:10→18:08)
[2017-10-27] MEDS: LACTATED RINGERS 1,000 ML IVS PRN ×2 (02:37→13:14)
[2017-10-27] MEDS ORDERED: metroNIDAZOLE IV PREMIX 500MG 100 ML IVPB ONE ×3 (03:31→20:42)
[2017-10-27] MEDS ORDERED: levoFLOXacin 500MG IV 100 ML IVPB ONE (03:32)
[2017-10-27] MEDS: metroNIDAZOLE IV PREMIX 500MG 500 MG in PREMIX BAG 1 BAG IVPB SCH ×3 (04:55→21:03)
[2017-10-27] MEDS: MORPHINE SULFATE INJ 10 MG/ML VIAL IV PRN ×3 (06:03→18:48)
[2017-10-27] MEDS: levoFLOXacin 500MG IV 500 MG in PREMIX BAG 1 BAG IVPB SCH (06:35)
--- NOTE | 2017-10-27 10:28 | OP ---
PREOPERATIVE DIAGNOSIS: 1. Diverticulitis with a colovesical fistula. POSTOPERATIVE DIAGNOSIS: 1. Diverticulitis with a colovesical fistula with iatrogenic injury to the left ureter. PROCEDURES: 1. Exploratory laparotomy. 2. Sigmoid colectomy repair. 3. Vesical fistula. 4. Reanastomosis of the left ureter with stent placement. SURGEON: Wilbert Delaney MD CAN INSPECTOR SURGEON: None. ANESTHESIA: General endotracheal anesthesia. INDICATION FOR SURGERY: The patient is a 61 year-old male who developed abdominal pain and was treated for a urinary tract infection. He eventually began passing gas per his urethra. CT scan revealed diverticulitis involving the dome of the bladder and an intramesenteric fluid collection or space consistent with an abscess. He was stable and afebrile with a normal white count on oral Levaquin and Flagyl and after a mechanical bowel prep he was brought to the surgical suite today for colectomy and repair of the bladder. FINDINGS AT TIME OF PROCEDURE: The sigmoid colon was densely adhered and in fact, stuck down in the pelvis and the induration involved the left ureter and it was not identified until it had been divided several centimeters from the bladder. No other pathology was identified in the upper abdomen. PROCEDURE: After adequate general endotracheal anesthesia was obtained, the patient was received IV antibiotics and he was prepped and draped in the usual sterile manner. Surgical time out was taken and a midline incision was made from above the umbilicus down to the pubis, first with a sharp knife and then dissection was carried through the skin and subcutaneous tissue to the midline fascia. The midline fascia was divided using electrocautery. The peritoneum was elevated, scored and the incision was lengthened for the length of the skin incision with electrocautery. When this was done, a self-retaining retractor was placed after moist towels were placed on the skin edges. The abdomen was explored with the previously noted findings. The nasogastric tube was checked for position in the stomach. Then, the small bowel which had some adhesions into the pelvis in the area of the bladder and diverticular disease, were dissected free with no difficulty and then it was packed superiorly under a green towel. At this point, the area of bowel that could be divided proximally was identified but the majority of the attention was taken to follow the sigmoid colon and rectum into the pelvis where it was adhesed anteriorly. The right side was relatively free and easy to dissect free but the left side of the bowel was stuck with significant induration to the left pelvic sidewall. After some dissection was performed in the right side which obtained, got us distal to the bladder, the dissection was taken down along the left pelvic sidewall and quite anterior but involving the indurated area just 1 or 2 cm at most below the colon. The left ureter was divided using electrocautery. When this was done, urine was noted to leak so after reevaluation of the tissues, the ends were freshened and then a ureteral stent was placed superiorly into the pelvis of the kidney and interiorly into the bladder. The ureter was then repaired over this with #3-0 Monocryl simple sutures. When this was done, the area was irrigated with saline. There was no urine noted to be leaking so at this point, the continuation of the dissection was carried out into the left colon. Eventually, the colon was dissected free from the bladder. The distal area of transection for the bowel was selected as was the proximal and the mesentery between the two was dissected free using electrocautery, blunt dissection, clamps and ligatures of #3-0 Vicryl and #2-0 Vicryl. When this was done, the high rectal stump was divided with a TA 55 thick staple without difficulty. There was a small amount of bleeding from the suture line which was easily controlled with electrocautery. A pack was then placed over this and then the proximal bowel was divided using a pursestring device. When this was done, the proximal bowel opening was dilated to 31 mm and a EEA 31 mm anvil was introduced and tied in place with the pursestring device. A towel was placed over this and at this point, the bladder was explored. Since there was no methylene blue or indigo carmine, we used condensed milk irrigating 240 cc into the bladder to distend and eventually this allowed us to identity the perforation. This was freshened up with a hemostat and then closed with a single #3-0 Vicryl [id number] suture followed by imbricating Lembert sutures of #2-0 Vicryl. This was irrigated copiously with saline. It was noted to be anterior and superior to the area of anastomosis for either the ureter or where the colon was to be done. At this point, I moved to the caudad end of the table. The anus was dilated first with 2 fingers and then with a 25, 28 and 31 dilators which were easily passed to the level of transection. The 31 EEA was then advanced. It was opened through the middle of the staple line, connected to the anvil, the anvil was tightened and fired and then removed. When this was done, the proximal colon was clamped and the proctoscope was introduced along with the other staple line and showed some mild oozing but otherwise there was no leak, no other problem, so the gas and proctoscope was removed. New gowns and gloves were obtained. At this point, it was noted that there was possibly a small amount of traction or tightness on the sigmoid colon so the left pericolic gutter was opened using electrocautery and blunt dissection which put took all tension off the anastomosis. The abdomen was then irrigated copiously with saline. The afferent was noted to be clear. There was no significant oozing noted in any place. At this point , 10 mm flat PARK drains were introduced, one through each flank, one was placed overlying the ureteral anastomosis down into the pelvis and the other one was on top of the right anterior to the bladder repair. They were sutured in place with #3-0 nylon ligatures and after cut appropriately, were connected to the closed grenade suctions. When this was done, the midline fascia was closed with running #1 PDS from above and below. After the incision was tight and tied , the subcutaneous tissue was irrigated copiously with saline and the skin edges were approximated with skin mei. Sterile dressings were applied and at this point, the catheter was removed sterilely and a new sterile catheter was introduced without difficulty of the ureteral catheter, which had come out through the penis. The urethra was then introduced into this Snyder catheter after making a small incision with a #11 blade sterilely. The ureteral stent was tied to the Snyder catheter with a silk suture. At this point, the patient was awakened and taken to the Recovery Room in stable condition. It was noted a small amount of bloody urine at this time. #[id number] [facility]
[2017-10-27] MEDS: IV SET AND CAP CHANGE INJ INJ SCH (13:14)
[2017-10-27] MEDS: PANTOPRAZOLE SODIUM IV 40 MG VIAL IV SCH (17:48)
--- NOTE | 2017-10-27 20:33 | PN ---
DATE: 10/27/17 SUPERVISING PHYSICIAN: Kosta Harvey M.D. SUBJECTIVE: The patient has had good pain control. His NG tube remains in place without any complications. His J-P drains have had minimum drainage since postoperative condition. He remains afebrile. Has had no nausea or vomiting but has yet not moved any gas or had a bowel movement. OBJECTIVE: VITAL SIGNS: Temperature 97.6, pulse 112, blood pressure 130/87, respirations 16, satting 94% on nasal cannula at 3.5 liters at rest. Weight is 113 kg. CHEST: Lungs were clear to auscultation bilaterally, just slightly diminished towards the bases. HEART: Regular rate and rhythm. Tachycardic rhythm on the bedside monitor. ABDOMEN: Abdominal binder remains in place. Abdomen is soft with dressing overlying the mid abdomen and J-P dressing and drains in place showing to be clean and dry with no signs of leakage or infection. Bowel sounds are heard but distant. He does have some overall generalized abdominal pain but no rebound tenderness. GENITOURINARY: His Snyder catheter continues to show hematuria. LABORATORY: White count 12,200, hemoglobin 13.4, hematocrit 41.2, platelet count 319,000. Differential does show a left shift. The patient is postoperative with obvious discomfort and demarginalization from stress response. Chemistries: Normal electrolytes with potassium 4.1, BUN 13, creatinine 0.71. Blood sugars are well controlled between 147 and 185. Liver functions all show to be within normal limits. Urinalysis this morning showed 100 of protein with large amount of blood, small amount of bilirubin, small amount of leukocyte esterase and too numerous to count RBCs on microscopic with 5 to 10 WBCs, 1+ bacteria, 1+ epithelials with trace mucous. MICROBIOLOGY: Urine culture is pending. Urine culture on 10/25/17 shows final at 48 hours with no growth. RADIOLOGY: No additional radiographic studies were obtained this morning. ASSESSMENT: 1. Postoperative day #1 exploratory laparotomy, sigmoid colectomy, bladder repair with urethral stent placement and urethral repair. 2. Diabetes mellitus type 2 on oral therapy. 3. History of hypertension. 4. Leukocytosis likely stress response with demarginalization postoperative requiring close monitoring. 5. Gross hematuria secondary to recent urethral stenting with no reported complications. PLAN: Will continue to follow the patient along with Dr. Delaney and defer surgical management to Dr. Delaney. Will monitor blood pressure and treat accordingly. He remains on sliding scale with good control at this point. He remains on Metronidazole and Levaquin. Once again, we are encouraging deep breathing exercises and active contraction of the lower extremities to prevent any postoperative complications. Will plan to follow the patient and repeat laboratory studies as necessary. Until discharge, continue to monitor and treat appropriately. #[id number] [facility]
[2017-10-28] MEDS: MORPHINE SULFATE INJ 10 MG/ML VIAL IV PRN ×3 (00:55→21:53)
[2017-10-28] MEDS: SODIUM CHLORIDE 0.9% (FLUSH) 10 ML SYG IV PRN ×4 (00:55→21:37)
[2017-10-28] MEDS ORDERED: metroNIDAZOLE IV PREMIX 500MG 100 ML IVPB ONE ×3 (05:06→19:32)
[2017-10-28] MEDS ORDERED: levoFLOXacin 500MG IV 100 ML IVPB ONE (05:07)
[2017-10-28] MEDS: metroNIDAZOLE IV PREMIX 500MG 500 MG in PREMIX BAG 1 BAG IVPB SCH ×3 (05:29→21:30)
[2017-10-28] MEDS: INSULIN LISPRO 100 UNITS/ML PEN SUBCU SCH ×4 (06:00→18:23)
[2017-10-28] MEDS: levoFLOXacin 500MG IV 500 MG in PREMIX BAG 1 BAG IVPB SCH (07:00)
[2017-10-28] MEDS ORDERED: MAGNESIUM HYDROXIDE 30 ML UD NG ONE (08:51)
[2017-10-28] MEDS: LACTATED RINGERS 1,000 ML IVS PRN ×2 (11:08→21:37)
--- NOTE | 2017-10-28 14:33 | PN ---
DATE: 10/28/17 SUPERVISING PHYSICIAN: Kosta Harvey M.D. SUBJECTIVE: The patient continues with the NG tube. He has had minimal nausea , is still confused, has a fair amount of output from his NG tube and has good pain control. He has been afebrile. He has not had a bowel movement or pass gas. OBJECTIVE: VITAL SIGNS: Temperature 99, pulse 120, blood pressure 130/95, respirations 19, satting 97% on nasal cannula at rest. I&O: Negative balance of 3026 with 2436 in and 5463 out. Weight is 112.5 kg. CHEST: Lungs were clear to auscultation. HEART: Regular rate and rhythm showing tachycardic on the bedside monitor. ABDOMEN: Incision site clean and dry with PARK drains in place with minimal drainage with very distant bowel sounds and tender throughout. EXTREMITIES: No cyanosis, clubbing , or edema. NEUROLOGIC: Alert and oriented x3. LABORATORY: White count 12,700, hemoglobin 12.1, hematocrit 37.6, platelet count 365,000. Differential does show to be within normal limits. Chemistries : Slightly elevated sodium of 146, potassium 3.7, BUN 13, creatinine 0.71. Blood sugars have been between 129 and 155. Calcium 8.7. RADIOLOGY: No additional radiographic studies for review. ASSESSMENT: 1. Postoperative day #2 for exploratory laparotomy, sigmoid colectomy, bladder repair with urethral stent placement and urethral repair. 2. Diabetes mellitus type 2 on oral therapy. 3. History of hypertension. 4. Leukocytosis likely responsive to demarginalization postoperative pain requiring close monitoring. 5. Gross hematuria secondary to urethral stenting with no reported complications with urine showing some slight clearing. PLAN: Will continue to follow the patient along with Dr. Delaney and defer further surgical management to Dr. Delaney. Will closely monitor his blood sugars , blood pressure and heart rate. Ancipitate hopefully to be able to start his home medications back in the near future. He will be encouraged to do deep breathing exercises and ambulate as much as possible and will anticipate discharge once the patient is stable. Until the, we will continue to monitor and treat appropriately.. #[id number] [facility]
[2017-10-28] MEDS: PANTOPRAZOLE SODIUM IV 40 MG VIAL IV SCH (16:14)
[2017-10-29] MEDS: INSULIN LISPRO 100 UNITS/ML PEN SUBCU SCH ×5 (00:10→21:36)
[2017-10-29] MEDS ORDERED: levoFLOXacin 500MG IV 100 ML IVPB ONE (02:16)
[2017-10-29] MEDS ORDERED: metroNIDAZOLE IV PREMIX 500MG 100 ML IVPB ONE ×3 (02:16→19:28)
[2017-10-29] MEDS: SODIUM CHLORIDE 0.9% (FLUSH) 10 ML SYG IV PRN (05:30)
[2017-10-29] MEDS: metroNIDAZOLE IV PREMIX 500MG 500 MG in PREMIX BAG 1 BAG IVPB SCH ×3 (05:30→20:55)
[2017-10-29] MEDS: levoFLOXacin 500MG IV 500 MG in PREMIX BAG 1 BAG IVPB SCH (06:30)
--- NOTE | 2017-10-29 07:14 | RAD ---
EXAM DESCRIPTION: Abdomen 1 View CLINICAL HISTORY: 61 years Male, check ureteral stent COMPARISON: None. FINDINGS: Postoperative changes in the lower abdomen and pelvis are new from the prior study. A left ureteral stent is present with its distal tip projecting over the bladder and its proximal end projecting over the expected location of the left renal pelvis. Surgical drains are present. A calcification in the left side of the pelvis probably represents a phlebolith. Skin mei are present anteriorly. The bowel gas pattern is nonobstructive. IMPRESSION: Postoperative changes in the lower abdomen and pelvis including a probable left ureteral stent in place as detailed above. Electronically signed by: Live Rodriguez MD 10/29/2017 7:11 AM CDT
[2017-10-29] MEDS: LACTATED RINGERS 1,000 ML IVS PRN ×2 (09:58→20:03)
--- NOTE | 2017-10-29 14:00 | PN ---
SUPERVISING PHYSICIAN: Germain Denney MD DATE: 10/29/17 SUBJECTIVE: This patient has no significant complaints of pain at this time. He does complain of some nausea. He states he did get up and walk yesterday and plans on walking this afternoon. OBJECTIVE: VITAL SIGNS: Blood pressure 144/89. Heart rate 94. Respiratory rate 18. Temperature 96.4. Oxygen saturation 94%. GENERAL: Mr. Sheriff is a 61-year-old male patient in no active distress. HEENT: Normocephalic, atraumatic. Pupils are equal and reactive. NG tube is in place. Throat with dry mucosa. NECK: Supple. Midline trachea. No jugular venous distention. CHEST: Symmetrical with equal rise and fall of the chest with inspiration and expiration. Lungs sounds are a little bit diminished in the bases. Otherwise, clear to auscultation bilaterally. CARDIOVASCULAR: Regular rate and rhythm. Normal S1, S2. ABDOMEN: Soft. Hypoactive bowel sounds. Midline incision is covered with a dressing. PARK drains noted. GENITOURINARY: Deferred. EXTREMITIES: Lower extremities with a little bit of ankle edema. Pulses 2+. Capillary refill is less than 2 seconds. NEUROLOGIC: The patient is alert. LABORATORY: Labs and films have been reviewed. Abdominal x-ray is consistent with postoperative changes. Cultures still negative so far. White count is down to 10.4, hemoglobin 11.4, hematocrit 35.2, platelet count 251. Sodium 146 , potassium 3.7, chloride 107, CO2 32, BUN 15, creatinine 1.14, glucose 124, calcium 8.7. ASSESSMENT: 1. Postoperative day #3 for exploratory laparotomy, sigmoid colectomy, bladder repair with ureteral stent. 2. Diabetes mellitus. 3. History of hypertension. 4. Leukocytosis, improving. 5. Hematuria, appears to be improving. PLAN: The patient seems to be progressing fairly well. Dr. Delaney has seen the patient as well and we will start him on a little bit of clear liquids and we can initiate gastric suctioning if necessary. There is an NG tube. Regarding his ureteral stent, Dr. Delaney is going to consult Dr. Salinas when he comes on Sunday to see the patient. I have encouraged the patient to get out of bed on a regular basis and ambulate. Also, cough, deep breathing and using incentive spirometry were discussed with him as well. He seemed to understand the importance of this. #[id number] [facility]
[2017-10-29] MEDS: PANTOPRAZOLE SODIUM IV 40 MG VIAL IV SCH (17:14)
[2017-10-29] MEDS: MORPHINE SULFATE INJ 10 MG/ML VIAL IV PRN (22:32)
[2017-10-30] MEDS ORDERED: metroNIDAZOLE IV PREMIX 500MG 100 ML IVPB ONE (04:23)
[2017-10-30] MEDS ORDERED: levoFLOXacin 500MG IV 100 ML IVPB ONE (04:23)
[2017-10-30] MEDS: metroNIDAZOLE IV PREMIX 500MG 500 MG in PREMIX BAG 1 BAG IVPB SCH (05:03)
[2017-10-30] MEDS: levoFLOXacin 500MG IV 500 MG in PREMIX BAG 1 BAG IVPB SCH (06:57)
[2017-10-30] MEDS: INSULIN LISPRO 100 UNITS/ML PEN SUBCU SCH ×4 (07:25→20:58)
[2017-10-30] MEDS: IV SET AND CAP CHANGE INJ INJ SCH (08:41)
[2017-10-30] MEDS: LACTATED RINGERS 1,000 ML IVS PRN ×2 (10:46→20:59)
[2017-10-30] MEDS ORDERED: KCL 20MEQ/WATER FOR INJ 100ML 20 MEQ in PREMIX BAG 1 BAG IVPB ONE (11:07)
--- NOTE | 2017-10-30 11:25 | PN ---
SUPERVISING PHYSICIAN: Germain Denney MD DATE: 10/30/17 SUBJECTIVE: Mr. Sheriff is doing fairly well today. His pain is improved. He still has a little bit of nausea, but better than it was yesterday. Dr. Delaney has seen the patient as well. The patient has ambulated in the noble and is tolerating this well. He is being advanced in diet today and NG tube will be discontinued. OBJECTIVE: VITAL SIGNS: Blood pressure 157/96. Heart rate 108. Respiratory rate 18. Temperature 98.6. Oxygen saturation 93%. GENERAL: Mr. Sheriff is a 61-year-old male patient still acutely ill in appearance, but in no distress. NEUROLOGIC: Alert and oriented. LUNGS: Clear to auscultation bilaterally. CARDIOVASCULAR: Slightly tachycardic, but normal S1, S2. ABDOMEN: Minimally distended, but soft. Incision is covered with a dressing. PARK drains are noted in minimal output. EXTREMITIES: Lower extremities with mild trace ankle edema. Pulses 2+. Capillary refill is less than 2 seconds. LABORATORY: Labs are reviewed. Sodium 143, potassium 3.3, chloride 104, CO2 31 , BUN 14, creatinine 0.72, glucose 121, calcium 9.1. ASSESSMENT: 1. Postoperative day #4 status post exploratory laparotomy with sigmoid colectomy, bladder repair with ureteral stent. 2. Hypokalemia. 3. Diabetes mellitus. 4. Hypertension. 5. Resolved leukocytosis. 6. Hematuria, step-florez improving. PLAN: The patient continues to progress well. I will replace his potassium with intravenous potassium as p.o. upset his stomach at this point. As stated above, his diet is advancing and his NG tube will be discontinued. There is still plan for Dr. Salinas to evaluate the patient tomorrow. We will continue his pulmonary toileting as well as ambulation. #[id number] [facility]
[2017-10-30] MEDS ORDERED: KCL 20MEQ/WATER FOR INJ 100ML 100 ML IVPB ONE (11:26)
[2017-10-30] MEDS: MORPHINE SULFATE INJ 10 MG/ML VIAL IV PRN (13:17)
[2017-10-30] MEDS: metroNIDAZOLE 500 MG TAB PO SCH ×2 (13:32→20:58)
[2017-10-30] MEDS ORDERED: PANTOPRAZOLE SODIUM TAB 40 MG PO ONE (13:49)
[2017-10-30] MEDS: PANTOPRAZOLE SODIUM TAB 40 MG PO SCH (17:11)
[2017-10-31] MEDS ORDERED: levoFLOXacin 500 MG TAB ONE (01:53)
[2017-10-31] MEDS: metroNIDAZOLE 500 MG TAB PO SCH ×3 (05:20→20:51)
[2017-10-31] MEDS: PANTOPRAZOLE SODIUM TAB 40 MG PO SCH (06:39)
[2017-10-31] MEDS: MORPHINE SULFATE INJ 10 MG/ML VIAL IV PRN (07:12)
[2017-10-31] MEDS: LACTATED RINGERS 1,000 ML IVS PRN ×2 (07:13→18:03)
[2017-10-31] MEDS: INSULIN LISPRO 100 UNITS/ML PEN SUBCU SCH ×4 (07:34→21:12)
[2017-10-31] MEDS: levoFLOXacin 500 MG TAB PO SCH (09:13)
--- NOTE | 2017-10-31 18:22 | PN ---
DATE: 10/31/17 SUPERVISING PHYSICIAN: Germain Denney M.D. SUBJECTIVE: The patient feels better today. He has had the NG tube out. He is tolerating a clear liquid diet. He is sitting up in the chair and actually walking the hallways as well. No nausea. No vomiting. He is passing gas. OBJECTIVE: VITAL SIGNS: 153/94, heart rate 84, respiratory rate 18, temperature 98.3, oxygen saturation 96%. GENERAL: Mr. Sheriff is a 61 year-old male patient in no distress. NEUROLOGIC: The patient is alert and oriented. LUNGS: Clear to auscultation bilaterally. CARDIOVASCULAR: The patient has a regular rate and rhythm. Normal S1 and S2. ABDOMEN: Soft. Positive bowel sounds. Drain is with minimal output. GENITOURINARY: Exam with a Snyder catheter in place which also has the ureteral catheter connected to this. Urine appears to be clear. Lower extremities with some trace ankle edema. Pulses are 2+. Capillary refill less than 2 seconds. LABORATORY: Reviewed with white blood cell count 7.3, hemoglobin 11.1, hematocrit 32.9, platelet count 241. Sodium 143, potassium 3.4, chloride 105, CO2 is 31, BUN 9, creatinine 0.66, glucose 105, calcium 8.6, magnesium 1.9. Pathology report has come back and shows that the segment of sigmoid colon that was resected is benign with evidence of diverticular disease. ASSESSMENT: 1. Postoperative day #5 status post exploratory laparoscopic sigmoid colon resection, bladder repair and ureteral stent placement. 2. Hypokalemia. 3. Diabetes mellitus. 4. Hypertension. 5. Hematuria. PLAN: As before, the patient continues to progress. His NG tube is out. He is tolerating a clear liquid diet, starting to pass gas, starting to mobilize more. His urine has cleared up pretty much. Dr. Salinas actually saw the patient today. I did go in the room while he was there and what was decided is that he would keep the current catheter in place which includes the ureteral catheter as well. This will be removed by Dr. Salinas in 2 weeks from today here in [place]. During that time, the patient will continue to keep the catheter and use the bag that it is already hooked up to and not replace it with a leg bag so that the sterility of the connections are not compromised. Also discussed antibiotics with Dr. Wilks. He stated that the patient could continue the Levaquin and Flagyl that he is already on and once he completes this regimen then to start him on Keflex 500 mg b.i.d. as a prophylactic dose until the catheters are removed. Given the fact that he is not going to have anything done for 2 weeks, I did advance his diet to a regular diet tonight. If he tolerates that well tonight as well as breakfast tomorrow, he can likely go home tomorrow morning on antibiotics p.o. of Levaquin and Flagyl to complete a course of antibiotics that Dr. Delaney wants him to complete. Once again, after that he will start the Keflex prophylaxis. #[id number] MTDD
[2017-10-31] MEDS: HYDROcodone 5MG/APAP 325MG 1 EA TAB PO PRN (20:51)
[2017-11-01] MEDS: HYDROcodone 5MG/APAP 325MG 1 EA TAB PO PRN (02:29)
[2017-11-01] MEDS: metroNIDAZOLE 500 MG TAB PO SCH (05:30)
[2017-11-01] MEDS: PANTOPRAZOLE SODIUM TAB 40 MG PO SCH (06:03)
[2017-11-01] MEDS: INSULIN LISPRO 100 UNITS/ML PEN SUBCU SCH ×2 (07:45→11:48)
[2017-11-01] MEDS ORDERED: SODIUM CHLORIDE 0.9% (FLUSH) 10 ML SYG IV SCH (09:00)
[2017-11-01] MEDS: levoFLOXacin 500 MG TAB PO SCH (09:27)
[2017-11-01 09:40] VITALS: BP 146/87; TEMP 98.8; O2SAT 98
--- NOTE | 2017-11-01 11:44 | DS ---
DISCHARGE DIAGNOSIS: 1. Postoperative day #6 status post exploratory laparotomy with partial sigmoid resection with bladder repair of a colovesical fistula as well as surgical repair of injury to ureter with stent placement and requiring further urological and surgical followup. 2. Hypokalemia with supplementation initiated. 3. Chronic diabetes mellitus on oral therapy. 4. Hypertension by history. 5. History of hematuria, probably secondary to the stent placement and postoperative status with followup to continue. HISTORY OF PRESENT ILLNESS: This 61-year-old, white male was admitted to the hospital for exploratory laparotomy with surgical intervention to remove a portion of colon where diverticulitis has resulted in a significant colovesical fistula, symptomatic with air bubble and recurring significant urinary infections. The patient had failed outpatient therapy and required surgical intervention to assist with relieving the ongoing symptoms. He tolerated the procedure of surgery quite well except there was a small nicking of a ureter which was repaired with primary anastomosis over a retained stent which will be removed in about two weeks by Dr. Salinas. The patient was continued on close surgical observation with GI rest, IV hydration, treated with antibiotics and slowly advancing his diet as tolerated to the point that he was on a regular diet with minimal pain. LABORATORY: Initial urinalysis was clean while repeat urinalysis after surgery did show significant blood, too numerous to count with some isolated WBCs and 1 + bacterial evident. Cultures of the urine on two occasions were negative. White count was down to 7,300 with 62% neutrophils at the time of discharge. Hemoglobin was down from 14.7 to 11.1. Chemistry shows potassium 3.4 which was up from 3.3 with supplementation to be continued. Kidney function was normal. Fasting glucose was 109 on the day of discharge with hemoglobin A1c being 7. Liver enzymes normal. Albumin 4.1. Abdominal x-ray was performed after surgery and showed postoperative changes as well as a left ureteral stent in place. Otherwise, nonspecific. Chest x-ray was performed the day before surgery and was a normal two-view examination. HOSPITAL COURSE: The patient's condition slowly improved with two drainage catheters in place in the left lower quadrant, one of which was removed on the day of discharge. The other one was left in place to be continued. The patient was ready to have continued outpatient management and close followup. PLAN: The patient is discharged home to have followup with Dr. Delaney on 11/05/[address] at [address] Judson Salinas two weeks on 11/14/17 at 2:30 PM at which time the ureteral catheter is to be removed. He will also have followup with Dr. Garcia as a routine primary care physician visit in the next couple of weeks. He is to drink plenty of fluids and avoid constipation. He is to breathe deeply and stay active with increased walking. Please refer to medication list. He is measure the output of the drainage catheter in his abdomen and record for Dr. Delaney's review in the clinic. He is to call Dr. Delaney if any questions arise. Return if not improving. #[id number] [facility]
== END 2017-11-01 11:51 | disposition home or self-care (01) | DRG 330 ==
LOC: AMB 06:03 → MS 17:50
PROVIDERS: ADMIT Surgery; ATTEND Emergency Medicine
PROC: 0T770DZ Dilation of Left Ureter with Intraluminal Device, Open Approach (ICD-10-PCS; 2017-10-26)
PROC: 0DBN0ZZ Excision of Sigmoid Colon, Open Approach (ICD-10-PCS; principal; 2017-10-26 09:08)
PROC: 0TQ70ZZ Repair Left Ureter, Open Approach (ICD-10-PCS; 2017-10-26 09:08)
DX: K57.32 Diverticulitis of large intestine without perforation or abscess without bleeding (principal); N32.1 Vesicointestinal fistula; N99.71 Accidental puncture and laceration of a genitourinary system organ or structure during a genitourinary system procedure; E87.6 Hypokalemia; K66.0 Peritoneal adhesions (postprocedural) (postinfection); E11.9 Type 2 diabetes mellitus without complications; I10 Essential (primary) hypertension; M19.90 Unspecified osteoarthritis, unspecified site; I83.90 Asymptomatic varicose veins of unspecified lower extremity; Y65.8 Other specified misadventures during surgical and medical care; R31.9 Hematuria, unspecified; Y92.234 Operating room of hospital as the place of occurrence of the external cause; Z88.0 Allergy status to penicillin; Z79.84 Long term (current) use of oral hypoglycemic drugs; Z88.8 Allergy status to other drugs, medicaments and biological substances; Z87.891 Personal history of nicotine dependence

== ENCOUNTER → 2017-11-20 | Outpatient (CLI) | payer OTHER ==
--- NOTE | 2017-11-20 15:55 | RAD ---
EXAM DESCRIPTION: IVP Intravenous Pyelogram CLINICAL HISTORY: 61 years Male, KIDNEY STONES. Surgical repair of left ureter. Checking for patency and leakage. COMPARISON: 1 view abdomen 10/29/2017. TECHNIQUE: Supine AP triage nurse image of the abdomen. Nonionic IV contrast injected followed by immediate AP kidneys. Five minute Supine AP abdomen and pelvis. 10 minute Bilateral supine oblique AP abdomen and pelvis. 10 minute AP pelvis. 15 minute AP supine abdomen and pelvis. 20 minute AP prone abdomen and pelvis. Post void AP supine abdomen and pelvis. No adverse reactions. FINDINGS: Preliminary triage nurse film of the abdomen shows bilateral renal shadows. Surgical sutures overlying the mid sacrum. Calcification in the inferior left pelvis is extra urinary. Spondylosis at L4-5 and L5-S1. Both kidneys are well-visualized immediately after contrast injection. On the 5 minute image, contrast can be seen within the right collecting system and the proximal and distal ureter. Delayed nephrogram seen on the left. On the 10 minute images, contrast seen in the left collecting system with blunting and enlargement consistent with hydronephrosis. No abnormalities on the right including mass effect. On the oblique full-field images, contrast noted in dilated distal left ureter. 15 minute image shows no abnormalities on the right, persistent hydronephrosis on the left with contrast and possible filling defects in the distended distal left ureter. Proximal and mid ureter not well seen. 25 minute prone and supine full-field images show relatively straight dilated left ureter and hydronephrosis in the collecting system. Small irregular filling defects now be seen in the distal 3 to 4 cm of the ureter, and this segment is distended. No contrast extravasation. Post void image of the pelvis shows dilated distal left ureter relatively uniform. Again noted are filling defects in the distal 3 to 4 cm with distention. No contrast extravasation and no intraluminal mass. IMPRESSION: Delayed nephrogram with hydronephrosis of the left kidney. Hydroureter entire length with more dilation of the distal 4 cm which contains filling defects which may represent sloughed tissue or hemorrhage. No contrast extravasation. Right kidney and ureter are unremarkable. Electronically signed by: Jay Arias MD 11/20/2017 3:54 PM CDT
== END ==
LOC: RAD 10:09
PROVIDERS: ATTEND Urology
DX: S37 Injury of urinary and pelvic organs (principal); N13.30 Unspecified hydronephrosis

== ENCOUNTER → 2018-01-01 | Outpatient (CLI) | payer OTHER ==
--- NOTE | 2018-01-02 16:12 | RAD ---
EXAM DESCRIPTION: IVP Intravenous Pyelogram CLINICAL HISTORY: 62 years Male, URETERAL LACERATION COMPARISON: IVP 11/20/2017. TECHNIQUE: Supine AP health and safety manager image of the abdomen. Nonionic IV contrast injected followed by immediate AP kidneys. Five minute Supine AP abdomen and pelvis. 10 minute Bilateral supine oblique AP abdomen and pelvis. 10 minute AP pelvis. 15 minute AP supine abdomen and pelvis. 20 minute AP prone abdomen and pelvis. Post void AP supine abdomen and pelvis. No adverse reactions. FINDINGS: Digital Production Artist film shows vascular calcifications and lumbar spondylosis, surgical clips right upper quadrant, and minimal distention of small bowel overlying the left kidney as was seen on the prior study. After contrast injection, immediate image shows bilateral nephrograms appear symmetric. 5 minute image shows unremarkable right collecting system and contrast in the mid and proximal right ureter. Mild to moderate hydronephrosis of the left collecting system and persistence of the nephrogram. 10 minute AP image shows unremarkable right collecting system and proximal ureter. Moderate hydronephrosis on the left and dilation of the renal pelvis but no intrinsic filling defects. 15 minute AP and oblique images show contrast proximal mid ureter but difficult to visualize below the pelvic inlet and mid left SI joint. Again no mass effect or intrinsic defects in the renal collecting system or proximal and mid ureter. Normal caliber of the right ureter. On the post void upright images, left ureter is distended down to the level of the inferior left SI joint with abrupt transition and normal caliber distally. No mass effect on either ureter. Minimal filling of the urinary bladder with no filling defects. IMPRESSION: Dilation of the majority of the left ureter with abrupt transition to normal caliber at the level of the inferior left SI joint. No mass effect on the dilated ureter or urinary bladder. Mild to moderate hydronephrosis of the left kidney with no mass effect or filling defects. No significant improvement since the prior study in left hydronephrosis or left hydroureter. Electronically signed by: Jay Arias MD 01/02/2018 4:11 PM CDT
== END ==
LOC: RAD 08:01
PROVIDERS: ATTEND Urology
DX: S37 Injury of urinary and pelvic organs (principal)

== ENCOUNTER → 2018-09-23 | Outpatient (CLI) | payer OTHER | LOC: LAB.O 07:30 | PROVIDERS: ATTEND Family Medicine | DX: E11.9 Type 2 diabetes mellitus without complications (principal) ==

== ENCOUNTER → 2020-01-07 | Outpatient (CLI) | payer OTHER | LOC: LAB.O 07:24 | PROVIDERS: ATTEND Family Medicine | DX: E11.9 Type 2 diabetes mellitus without complications (principal) ==

== ENCOUNTER → 2020-08-02 | Outpatient (CLI) | payer OTHER | LOC: LAB.O 17:25 | PROVIDERS: ATTEND Family Medicine | DX: E11.9 Type 2 diabetes mellitus without complications (principal) ==

== ENCOUNTER 2020-09-24 09:55 | Emergency (ER) | payer OTHER ==
--- NOTE | 2020-09-24 11:48 | RAD ---
EXAM DESCRIPTION: Abdomen Series CLINICAL HISTORY: 64 years Male, sob, ruq pain COMPARISON: None. FINDINGS: The cardiac silhouette is enlarged. No airspace consolidation or pleural effusion. No free subdiaphragmatic gas or intra-abdominal air-fluid level. Nonobstructive bowel gas pattern. Limited exam due to patient habitus and underpenetrated technique. Probable left-sided pelvic phlebolith. Degenerative changes in the lumbar spine. IMPRESSION: No pneumoperitoneum, bowel obstruction or other acute intra-abdominal abnormality. Electronically signed by: Live Rodriguez MD 09/24/2020 11:47 AM [facility]
[2020-09-24] MEDS ORDERED: levoFLOXacin 500 MG TAB PO ONE (13:30)
[2020-09-24] MEDS ORDERED: predniSONE 20 MG TAB PO ONE (13:30)
[2020-09-24] MEDS ORDERED: metroNIDAZOLE 500 MG TAB PO ONE (13:30)
--- NOTE | 2020-09-24 13:42 | ED.PDOC ---
History of Present Illness - General Chief Complaint: General Stated Complaint: BALDWIN, nausea, SOB, cough, ear pain, thumb numbness Time Seen by Provider: 09/24/20 09:57 Source: patient Exam Limitations: no limitations - History of Present Illness Initial Comments: The patient is a 64-year-old male presented emergency room secondary to primarily shortness of breath. The patient has had some increased shortness of breath and cough for the last couple of days. Mildly productive cough. No sore throat today but he did have a sore throat a few days ago. He has had some mild nausea but no vomiting. He denies any abdominal pain however upon exam he does have fairly significant left upper quadrant tenderness to palpation. He does have a significant history of diverticulitis in his past. He has had a partial colon resection due to it as well. No fevers. No syncope. No diarrhea. No chest pain. He has had a mild headache. He has had generalized fatigue. Timing/Duration: other - A couple of days Severity: moderate Improving Factors: nothing Worsening Factors: nothing Associated Symptoms: cough, loss of appetite, malaise, shortness of breath Allergies/Adverse Reactions: Allergies Penicillins Allergy (Verified 09/24/20 10:15) Gamma Globulin Allergy (Uncoded 05/26/15 07:27) Rash Home Medications: Ambulatory Orders Metoprolol Tartrate [Lopressor] 50 mg PO BID 11/10/16 Hydrochlorothiazide 12.5 mg PO DAILY 05/16/17 Metformin HCl [Metformin Hydrochloride] 500 mg PO BID 05/16/17 Ibuprofen 200 mg PO Q6HR PRN 10/01/17 Multiple Vitamin [Multivitamins] 1 cap PO DAILY 10/01/17 Bifidobacterium Infantis [Align] 4 mg PO BID #60 capsule 10/03/17 Cephalexin Monohydrate [Keflex] 500 mg PO BID 14 Days #28 cap 10/31/17 Acetaminophen W/ Codeine [Tylenol W/ CODEINE #3] 1 ea PO Q4H PRN #20 11/01/17 Potassium Chloride [Potassium Chloride ER] 10 meq PO DAILY #30 tab 11/01/17 Acetaminophen W/ Codeine [Tylenol W/ CODEINE #3] 1 ea PO Q6HR PRN #12 ea 04/07/20 Diazepam [Valium] 2 mg PO Q6HR PRN #8 tab 04/07/20 Lidocaine [Lidocaine Patch 5%] 5 % EX DAILY PRN #5 pad 04/07/20 Metronidazole 500 mg PO TID #30 tab 09/24/20 levoFLOXacin [Levaquin] 500 mg PO DAILY #7 tab 09/24/20 Review of Systems - Review of Systems Constitutional: States: malaise EENTM: States: throat pain Respiratory: States: cough, short of breath Cardiology: States: no symptoms reported Gastrointestinal/Abdominal: States: abdominal pain, nausea Genitourinary: States: no symptoms reported Musculoskeletal: States: no symptoms reported Skin: States: no symptoms reported Neurological: States: headache Endocrine: States: no symptoms reported All other Systems: No Change from Baseline Past Medical History (General) - Patient Medical History Hx Seizures: No Hx Stroke: No Hx Asthma: No Hx of COPD: No Hx Cardiac Disorders: Yes Hx Congestive Heart Failure: No Hx Pacemaker: No Hx Hypertension: Yes Hx Diabetes: Yes Hx Cancer: No Hx MRSA: No Surgical History: cholecystectomy, colectomy, other - Vaccination History Hx Influenza Vaccination: Yes Hx Pneumococcal Vaccination: No - Social History Hx Tobacco Use: No Hx Alcohol Use: No Hx Substance Use: No Hx Substance Use Treatment: No Hx Depression: No Hx Physical Abuse: No Hx Emotional Abuse: No - Female History Patient is a Female of Child Bearing Age (10 -59 yrs old): No Patient : No Family Medical History - Family History Father Living Status: Still Living Hx Family Hypertension: Yes Hx Family Cancer: Yes - bladder, prostate Hx Family;Other: COPD, emphysema Mother Living Status: Hx Family Congestive Heart Failure: Yes Physical Exam - Physical Exam General Appearance: Alert, No apparent distress Eye Exam: bilateral normal Ears, Nose, Throat: hearing grossly normal, normal pharynx Neck: full range of motion, supple Respiratory: lungs clear, normal breath sounds, no respiratory distress, no accessory muscle use, other - Very frequent cough however Cardiovascular/Chest: normal peripheral pulses, regular rate, rhythm, no edema Peripheral Pulses: radial,right: 2+, radial,left: 2+ Gastrointestinal/Abdominal: soft, other - Right upper quadrant tenderness to palpation. No rebound. No palpable mass. Rectal Exam: deferred Back Exam: no CVA tenderness, no vertebral tenderness Extremity: normal range of motion, non-tender, normal inspection, no pedal edema, normal capillary refill Neurologic: scanning tech II-XII nml as tested, alert, normal mood/affect, oriented x 3 Skin Exam: normal color Comments: Vital Signs - 24 hr 09/24/20 09/24/20 09/24/20 09:55 09:56 10:56 Temperature 97 F L Pulse Rate [ 86 86 85 Pulse ox] Respiratory 18 18 20 Rate Blood Pressure 177/103 132/84 [L arm] O2 Sat by Pulse 94 L 94 L Oximetry 09/24/20 11:56 Temperature Pulse Rate [ 89 Pulse ox] Respiratory 20 Rate Blood Pressure 140/101 [L arm] O2 Sat by Pulse 94 L Oximetry Progress - Progress Progress: 09/24/20 13:44 The patient is a 64-year-old male presented emergency room secondary to feeling poorly. The patient has right upper quadrant tenderness to palpation. With his history of diverticulitis he is going to be treated presumptively for it with Levaquin and metronidazole. Additionally the patient appears to have an acute pulmonary infection without obvious consolidation yet on the chest x-ray. The Levaquin should help cover for any bacterial pathology. Additionally the patient did receive 1 dose of oral prednisone here to help reduce inflammation. The patient tested negative for coronavirus include. He is not hypoxic and vital signs are stable aside from moderate hypertension. I want him to follow back up with his primary care doctor early in the coming week for repeat evaluation. ER warnings are given for any worsening. miguel cervantes [phone] - Results/Orders Results/Orders: Rapid coronavirus and rapid flu were negative. Chest x-ray shows some cardiomegaly but no obvious infiltrate. Abdominal x-ray shows no evidence of obstruction. EKG STAT shows normal sinus rhythm 85 bpm. Normal axis. Early right bundle branch block. No ST segment or T wave changes indicative of acute ischemia. Mild left atrial dilation. Normal QT interval. Laboratory Results - last 24 hr 09/24/20 09/24/20 09/24/20 10:30 10:30 10:30 WBC 8.6 RBC 5.38 Hgb 16.4 Hct 49.2 MCV 91.5 MCH 30.5 MCHC 33.4 RDW 14.2 Plt Count 253 MPV 8.5 Absolute Neuts (auto) 6.00 Absolute Lymphs (auto) 1.40 Absolute Monos (auto) 0.70 Absolute Eos (auto) 0.30 Absolute Basos (auto) 0.10 Neutrophils % 70.4 Lymphocytes % 16.5 L Monocytes % 8.4 Eosinophils % 3.5 Basophils % 1.2 PT 9.8 INR < 1.00 PTT (SP) 25.6 Sodium 136 Potassium 3.8 Chloride 97 L Carbon Dioxide 29 Anion Gap 13.8 BUN 16 Creatinine 0.86 BUN/Creatinine Ratio 18.6 Random Glucose 202 H Serum Osmolality 278.9 Lactic Acid Calcium 9.2 Magnesium Total Bilirubin 0.7 AST 26 ALT 32 Alkaline Phosphatase 58 Creatine Kinase 423 H* CK-MB (CK-2) 15.5 H* CK-MB (CK-2) % 3.66 H Troponin I < 0.02 C-Reactive Protein B-Natriuretic Peptide < 15.0 Serum Total Protein 7.1 Albumin 4.0 Globulin 3.1 Albumin/Globulin Ratio 1.3 Amylase 35 Lipase TSH Urine Color Urine Appearance Urine pH Ur Specific [place] Urine Protein Urine Glucose (UA) Urine Ketones Urine Blood Urine Nitrite Urine Bilirubin Urine Urobilinogen Ur Leukocyte Esterase Urine RBC Urine WBC Ur Epithelial Cells Urine Bacteria 09/24/20 09/24/20 09/24/20 10:30 10:30 10:30 WBC RBC Hgb Hct MCV MCH MCHC RDW Plt Count MPV Absolute Neuts (auto) Absolute Lymphs (auto) Absolute Monos (auto) Absolute Eos (auto) Absolute Basos (auto) Neutrophils % Lymphocytes % Monocytes % Eosinophils % Basophils % PT INR PTT (SP) Sodium Potassium Chloride Carbon Dioxide Anion Gap BUN Creatinine BUN/Creatinine Ratio Random Glucose Serum Osmolality Lactic Acid 2.0 Calcium Magnesium 2.0 Total Bilirubin AST ALT Alkaline Phosphatase Creatine Kinase CK-MB (CK-2) CK-MB (CK-2) % Troponin I C-Reactive Protein 1.5 H B-Natriuretic Peptide Serum Total Protein Albumin Globulin Albumin/Globulin Ratio Amylase Lipase 23 TSH 2.44 Urine Color Urine Appearance Urine pH Ur Specific [place] Urine Protein Urine Glucose (UA) Urine Ketones Urine Blood Urine Nitrite Urine Bilirubin Urine Urobilinogen Ur Leukocyte Esterase Urine RBC Urine WBC Ur Epithelial Cells Urine Bacteria 09/24/20 09/24/20 12:28 12:41 WBC RBC Hgb Hct MCV MCH MCHC RDW Plt Count MPV Absolute Neuts (auto) Absolute Lymphs (auto) Absolute Monos (auto) Absolute Eos (auto) Absolute Basos (auto) Neutrophils % Lymphocytes % Monocytes % Eosinophils % Basophils % PT INR PTT (SP) Sodium Potassium Chloride Carbon Dioxide Anion Gap BUN Creatinine BUN/Creatinine Ratio Random Glucose Serum Osmolality Lactic Acid Calcium Magnesium Total Bilirubin AST ALT Alkaline Phosphatase Creatine Kinase 453 H* CK-MB (CK-2) 15.2 H* CK-MB (CK-2) % 3.36 Troponin I < 0.02 C-Reactive Protein B-Natriuretic Peptide Serum Total Protein Albumin Globulin Albumin/Globulin Ratio Amylase Lipase TSH Urine Color Yellow Urine Appearance Clear Urine pH 5.5 Ur Specific [place] 1.025 Urine Protein 30 Urine Glucose (UA) Negative Urine Ketones Negative Urine Blood Negative Urine Nitrite Negative Urine Bilirubin Negative Urine Urobilinogen 0.2 Ur Leukocyte Esterase Negative Urine RBC 0 Urine WBC 0 Ur Epithelial Cells 0-1 Urine Bacteria 0 Departure - Departure Clinical Impression: Diverticulitis Acute bronchitis Qualifiers: Bronchitis organism: unspecified organism Qualified Code(s): J20.9 - Acute bronchitis, unspecified Disposition: Discharge to Home or Self Care Condition: Fair Departure Forms: ED Discharge - Pt. Copy, Patient Portal Self Enrollment Instructions: Diverticulitis (DC) Diet: diabetic diet Activity: increase activity as tolerated Referrals: JUAN HANLEY [Primary Care Provider] - 1-2 Weeks Prescriptions: levoFLOXacin [Levaquin] 500 mg PO DAILY #7 tab Metronidazole 500 mg PO TID #30 tab Home Medications: Ambulatory Orders Metoprolol Tartrate [Lopressor] 50 mg PO BID 11/10/16 Hydrochlorothiazide 12.5 mg PO DAILY 05/16/17 Metformin HCl [Metformin Hydrochloride] 500 mg PO BID 05/16/17 Ibuprofen 200 mg PO Q6HR PRN 10/01/17 Multiple Vitamin [Multivitamins] 1 cap PO DAILY 10/01/17 Bifidobacterium Infantis [Align] 4 mg PO BID #60 capsule 10/03/17 Cephalexin Monohydrate [Keflex] 500 mg PO BID 14 Days #28 cap 10/31/17 Acetaminophen W/ Codeine [Tylenol W/ CODEINE #3] 1 ea PO Q4H PRN #20 11/01/17 Potassium Chloride [Potassium Chloride ER] 10 meq PO DAILY #30 tab 11/01/17 Acetaminophen W/ Codeine [Tylenol W/ CODEINE #3] 1 ea PO Q6HR PRN #12 ea 04/07/20 Diazepam [Valium] 2 mg PO Q6HR PRN #8 tab 04/07/20 Lidocaine [Lidocaine Patch 5%] 5 % EX DAILY PRN #5 pad 04/07/20 Metronidazole 500 mg PO TID #30 tab 09/24/20 levoFLOXacin [Levaquin] 500 mg PO DAILY #7 tab 09/24/20 Additional Instructions: The patient is a 64-year-old male presented emergency room secondary to feeling poorly. The patient has right upper quadrant tenderness to palpation. With his history of diverticulitis he is going to be treated presumptively for it with Levaquin and metronidazole. Additionally the patient appears to have an acute pulmonary infection without obvious consolidation yet on the chest x-ray. The Levaquin should help cover for any bacterial pathology. Additionally the patient did receive 1 dose of oral prednisone here to help reduce inflammation. The patient tested negative for coronavirus include. He is not hypoxic and vital signs are stable aside from moderate hypertension. I want him to follow back up with his primary care doctor early in the coming week for repeat evaluation. ER warnings are given for any worsening.
[2020-09-24 14:07] VITALS: BP 128/88; TEMP 97.4; O2SAT 93
== END 2020-09-24 13:55 | disposition home or self-care (01) ==
LOC: ER 09:55
DX: K57.32 Diverticulitis of large intestine without perforation or abscess without bleeding (principal); J20.9 Acute bronchitis, unspecified; R51.9 Headache, unspecified; I45.10 Unspecified right bundle-branch block; R53.83 Other fatigue; E11.9 Type 2 diabetes mellitus without complications; I10 Essential (primary) hypertension; I51.9 Heart disease, unspecified; Z20.822 Contact with and (suspected) exposure to COVID-19; Z90.49 Acquired absence of other specified parts of digestive tract; Z79.899 Other long term (current) drug therapy; Z79.84 Long term (current) use of oral hypoglycemic drugs; Z88.0 Allergy status to penicillin; Z88.8 Allergy status to other drugs, medicaments and biological substances
CPT/HCPCS: 36415; 74019; 80053; 81001; 82150; 82550; 82553; 83605; 83690; 83735; 83880; 84443; 84484; 85025; 85610; 85730; 86140; 87040; 87502; 87635; 93005; J7512